=== PATIENT | female | born 1985 | race Caucasian/White ===

== ENCOUNTER → 2017-08-30 16:16 | Outpatient (CLI) | payer OTHER, SELFPAY ==
[2017-08-30 19:10] LABS: Group B Strep DNA By PCR POSITIVE (Negative); Probe Check PASS
== END ==
PROVIDERS: Visit Provider Obstetrics & Gynecology
DX: Z36.85 Encounter for antenatal screening for Streptococcus B (principal)
CPT/HCPCS: 87653

== ENCOUNTER 2017-09-05 01:00 | Inpatient (IN) | payer OTHER, SELFPAY ==
[2017-09-05] MEDS: Lactated Ringers 1,000 ML 50 ML IV ×4 (02:10→13:40)
[2017-09-05 02:13] LABS: ROM Internal Control Test YES-OK TO RESULT pt. (Internal QC)
[2017-09-05 02:14] LABS: ROM Patient Test POSITIVE (Negative)
[2017-09-05 02:48] VITALS: BMI 36.2
[2017-09-05 02:51] LABS: Hematocrit 35.8 % (37-47); Hemoglobin 11.6 g/dl (12.0-15.0); Mean Corp Hgb Conc 32.4 g/gl (32-36); Mean Corpuscular Hgb 31.2 pg (27.0-32.0); Mean Corpuscular Volume 96.2 fL (81-99); Mean Platelet Vol. 9.7 fl (6.2-12.0); Platelet Count 297 K/mm3 (150-450); RBC Distribution Width CV 14.7 % (11.6-14.6); Red Blood Count 3.72 M/mm3 (4.2-5.4); Scan Indicated on CBC? Y/N NO
[2017-09-05] MEDS: Oxytocin 30 units/NS 500 ml 30 UNITS/500 ML IV.SOLN IV (10:56)
--- NOTE | 2017-09-05 11:25 | PCM.PN.OB ---
Subjective: 36+ week intrauterine presented with premature rupture membranes last evening. Now about 12 hours from rupture of membranes. Cervix has progressed to about 4-5 cm and internal monitoring shows poor contraction pattern. Epidural is in place and patient is comfortable. Ultrasound confirms cephalic presentation. Will start Pitocin to improve contraction pattern. Has now had 3 doses of penicillin. Anticipate spontaneous vaginal delivery. - Physical Exam Weight: 211 lb 3.245 oz Body Mass Index (BMI) 36.2 Intake and Output for Last 24 Hours 09/03/17 09/04/17 09/05/17 23:59 23:59 23:59 Intake Total 1931 / 1931 Output Total 1750 / 1750 Balance 181 / 181 Laboratory Tests Past 24 Hrs 09/05/17 09/05/17 09/05/17 01:35 02:10 02:10 WBC 9.0 RBC 3.72 L Hgb 11.6 L Hct 35.8 L MCV 96.2 MCH 31.2 MCHC 32.4 RDW 14.7 H RDW Differential 51.0 H Plt Count 297 MPV 9.7 Vag Amniotic Fld Detect POSITIVE H Blood Type O POSITIVE Antibody Screen NEGATIVE
[2017-09-05] MEDS: Oxytocin 30 units/NS 500 ml 30 UNITS/500 ML IV.SOLN 334 UNITS IV (13:51)
--- NOTE | 2017-09-05 14:04 | PCM.OB.VAG ---
Vaginal Delivery Maternal Presentation: Active Labor, Spontaneous Rupture of Membranes Amniotic Membrane Rupture Type: Spontaneous at home Amniotic Fluid Description: Clear Final JAKE: 09/30/17 Final JAKE Source: US <20 weeks Gestational age: 36 Weeks and 3 Days doctor who attended delivery (if requested by OB): Sugey Giordano, 36+ weeks Date of Procedure: 09/05/17 Pre-Operative Diagnosis: PPROM, IUP Post-Operative Diagnosis: PPROM, IUP Surgery/ Procedure Performed: Spontaneous Vaginal Delivery Type of Anesthesia: Epidural Description of Procedure: Spontaneous vaginal delivery of a viable female infant with Apgars of 8/9 from an occiput anterior presentation with clear amniotic fluid and normal three-vessel placenta. No episiotomy or laceration. Sponge counts okay. Delivery physician: Darren Smith MD. Presentation: Vertex Placental Delivery Description: Spontaneous Placenta Disposition: [facility] Cord Vessel Description: 3 Vessels Cord Gases drawn per routine: ABG Cord Entanglement: None Estimated Blood Loss: 250 cc Infant A gender: Female (1 minute): 8 (5 minute): 9 Episiotomy Description: None Laceration: None Medications given after delivery: IV Pitocin Complications: None
--- NOTE | 2017-09-05 14:09 | OP.PCM_ITS ---
Vaginal Delivery Maternal Presentation: Active Labor, Spontaneous Rupture of Membranes Amniotic Membrane Rupture Type: Spontaneous at home Amniotic Fluid Description: Clear Final JAKE: 09/30/17 Final JAKE Source: US <20 weeks Gestational age: 36 Weeks and 3 Days doctor who attended delivery (if requested by OB): Sugey Giordano , 36+ weeks Date of Procedure: 09/05/17 Pre-Operative Diagnosis: PPROM, IUP Post-Operative Diagnosis: PPROM, IUP Surgery/ Procedure Performed: Spontaneous Vaginal Delivery Type of Anesthesia: Epidural Description of Procedure: Spontaneous vaginal delivery of a viable female infant with Apgars of 8/9 from an occiput anterior presentation with clear amniotic fluid and normal three- vessel placenta. No episiotomy or laceration. Sponge counts okay. Delivery physician: Darren Smith MD. Presentation: Vertex Placental Delivery Description: Spontaneous Placenta Disposition: [facility] Cord Vessel Description: 3 Vessels Cord Gases drawn per routine: ABG Cord Entanglement: None Estimated Blood Loss: 250 cc Infant A gender: Female (1 minute): 8 (5 minute): 9 Episiotomy Description: None Laceration: None Medications given after delivery: IV Pitocin Complications: None
--- NOTE | 2017-09-05 14:11 | DCINST_ITS ---
Discharge Diet: No Restrictions Discharge Activity: May Shower, May Take a Tub Bath May resume sexual activity in: 4-6 weeks Additional Activity Instructions:: Nothing in the vagina for 4-6 weeks. You may return to work/school in 6 weeks. Call your doctor if you observe: Fever of 101 or Higher, Inability to urinate, Inability to have a bowel movement, Using more than one pad per hour Additional Instructions: If you experience any of the following, contact your healthcare provider. * Unrelieved incision or abdominal pain * Swelling, redness, discharge or bleeding from your incision or episiotomy site * Your incision begins to separate * Problems urinating (including inability to urinate or burning while urinating) . * Visual changes * Severe headache * Flu-like symptoms * Pain or redness in one of both of your breasts * Pain, warmth, tenderness or swelling in your legs, especially the calf area * Frequent nausea and vomiting * Symptoms of depression or anxiety If you experience any of the following, call 911 or go to the nearest Emergency Room. * Chest pain * Problems breathing * Seizure activity * Partial or complete paralysis of a body part, slurred speech, weakness or drooping of the face, or a sudden inability to walk or hold your balance Allergies/Adverse Reactions: Allergies No Known Allergies Allergy (Verified 09/05/17 02:49) Medications to take at Discharge Singulair 50 mg PO DAILY 09/30/14 Zoloft 50 mg PO DAILY 09/30/14 Albuterol IH (ProAir) [Proair Hfa (SP)Vent Pts] 1 puff INHALATION Q4H PRN PRN Mometasone/Formoterol [Dulera 100 Mcg/5 Mcg Inhaler] 1 puff IH DAILY 09/05/17 Vits [Prenatabs FA] 1 tablet PO DAILY 09/05/17 Please Follow Up With: Josseline Guevara MD - [phone] When: Call to make an appointment with your doctor in 6 weeks. Primary Care Physician: Nikko Loya DO [Primary Care Provider] -
[2017-09-05] MEDS: Oxytocin 30 units/NS 500 ml 30 UNITS/500 ML IV.SOLN 167 UNITS IV (14:22)
[2017-09-05] MEDS: 0.9% Saline Lock 10 ML Syringe IV (15:35)
[2017-09-05 17:54] VITALS: BP 97/47; PULSE 78; RESP 16; TEMP 36.4
[2017-09-05 19:20] VITALS: BP 103/63; PULSE 78; RESP 18; TEMP 36.6; O2SAT 99
[2017-09-05] MEDS: Sertraline 50 MG Tablet PO (21:44)
[2017-09-05] MEDS: Montelukast 10 MG Tablet PO (21:44)
[2017-09-05] MEDS: Ibuprofen 600 MG Tablet PO (21:44)
[2017-09-05 23:48] VITALS: BP 111/63; PULSE 70; RESP 18; TEMP 36.8; O2SAT 98
[2017-09-06 03:19] VITALS: BP 111/56; PULSE 72; RESP 16; TEMP 36.6
[2017-09-06] MEDS: Ibuprofen 600 MG Tablet PO ×2 (07:24→17:29)
[2017-09-06 08:18] VITALS: BP 107/64; PULSE 70; RESP 17; TEMP 36.7
[2017-09-06 12:30] VITALS: BP 105/70; PULSE 80; RESP 16; TEMP 36.6; O2SAT 98
--- NOTE | 2017-09-06 13:03 | PCM.PN.OB ---
Subjective: Patient without complaints. Breast-feeding going well. Son has influenza B which started last Wednesday. Patient without symptoms except upon presentation on Wednesday she had a fever of 100.0 at home. No fevers here or other symptoms. - Physical Exam Vital Signs AF, VSS Temp Pulse Resp BP Pulse Ox 98.0 F 70 17 107/64 98 09/06/17 08:18 09/06/17 08:18 09/06/17 08:18 09/06/17 08:18 09/05/17 23:48 Oxygen Delivery Method Room Air Weight: 211 lb 3.245 oz Body Mass Index (BMI) 36.2 Intake and Output for Last 24 Hours 09/04/17 09/05/17 09/06/17 23:59 23:59 23:59 Intake Total 3393 / 3393 Output Total 3900 / 3900 Balance -507 / -507 Fundus firm, minimal lochia. Assessment/Plan Doing well. Continuing present care. Will start prophylactic Tamiflu.
[2017-09-06] MEDS: Oseltamivir Phosphate 75 MG Capsule PO (14:00)
[2017-09-06 15:40] VITALS: BP 121/60; PULSE 78; RESP 16; TEMP 36.6; O2SAT 98
--- NOTE | 2017-09-06 16:26 | CASEMGMT ---
Social Work Referral Date: 09/06/17 Date of Assessment: 09/06/17 Reason for Consult: History of depression (PPD) Informant: Mother of baby (MOB) and chart Personal Status Mentation: (A&Ox3?): MOB oriented x3 Present during assessment: MOB and infant Hx : 2 Hx Para: 1 Infant Gender: Female Infant Name: Maureen Watts (1min): 8 (5min): 9 Care: Adequate care Alleged father: Manuel Watts Alleged father involved: Yes Length of Relationship with alleged father of baby: MOB and father of baby (FOB) have been in a relationship for 13 years and were in 2008. Number of Children in the home: Maureen is second infant for both MOB and FOB. Maureen is now younger sister to 4 year old Perfecto Watts. Custody Comments: MOB and FOB have full custody of Perfecto and now this . Living Arrangements: MOB, FOB, [place] and now this infant live in a private home. Education: MOB with a collage education in nursing. Employment: [employer], MOB has 12 weeks of leave. Family Dynamics/Relationships: MOB reporting to have a positive relationship with FOB and to mention FOB has a main support system. Supports: MOB identifying to have a positive support system from both maternal and paternal grandparents along with FOB and multiple friends. Substance Abuse Hx and Current Pattern of Use Comment: MOB denies any history of Alcohol abuse, tobacco use, Marijuana, Heroin, Cocaine, Methamphetamine, and Prescriptions Drugs. Mental Health Hx and Current Status Comment: MOB reporting to have a history of depression from going through nursing school. MOB also reporting to have a history of PPD with first . MOB reporting to currently be managing PPD and depression through medication: Zoloft. MOB reporting that MOB has tried multiple depression medications throughout the years and has found that Zoloft has been helpful and beneficial. This social work job titles broaching topic of counseling for MOB. MOB reporting to have no history of counseling and to not currently be opening to adding another thing. MOB denies any suicidal ideation or thoughts. MOB communicating that Perfecto (REJI's first child) was just diagnosed with the flu and MOB is concerned about returning home with . This social work job titles exploring options with MOB as MOB expressing that Perfecto could go to be with grandparents for the next few days while transitions home and [place] becomes healthy again. MOB tearful during above conversation and reporting to be unsure about what the right things is to do as MOB would like to be with both children. MOB presenting and reporting to be overwhelmed with current situation. MOB open to this social work job titles giving MOB information about counseling services. This social work job titles encouraged MOB to look into counseling options and to keep seeking out support systems when MOB is feeling down or overwhelmed. MOB reporting to be open to speaking with spouse and other support systems about mood. MOB also reporting to keep primary care doctor informed about MOB's current mood. Supportive counseling given. Items/Skills List for Infants Care Supplies: MOB reporting to have all needed supplies: crib, infant clothing, bottles, formula, breast pump, care seat. Bonding With : MOB reporting to feel a connection with . Observed Maternal/Paternal Child interaction: MOB holding infant during conversation. MOB finger tipping infant often as well as gazing towards infant. Emotional Assessment: MOB tearful during this social workers questions about depression/PPD/Perfecto with the flu. MOB able to collect self and be engaged in conversation with this social work job titles as evidenced by frequent eye contact and initiating conversation. Control: MOB unsure at this time. Resources JFS: No WIC: No People to People: No Community Action: No Help Me Grow: No Children Protective Services Hx: No Transportation: MOB reporting no concerns. Comments: Resources given to MOB for PPD, [facility], Help Me Grow, Counseling agencies, safe sleeping, and how to sooth an infant. Intervention: None at this time. Plan: to discharge home with MOB, FOB and Perfecto. Delphine CALIX, EMULSION OPERATOR
[2017-09-06 20:57] VITALS: BP 115/70; PULSE 72; RESP 18; TEMP 36.9
[2017-09-06] MEDS: Sertraline 50 MG Tablet PO (21:56)
[2017-09-06] MEDS: Montelukast 10 MG Tablet PO (21:56)
[2017-09-07] MEDS: Ibuprofen 600 MG Tablet PO ×2 (01:23→08:02)
[2017-09-07 01:40] VITALS: BP 113/53; PULSE 59; RESP 16; TEMP 36.4
--- NOTE | 2017-09-07 08:03 | PCM.PN.OB ---
Subjective: cluster fed overnight, but continues working on latch. Denies significant pain or heavy lochia. Ángela feels well. Objective: AVSS - Physical Exam General: Alert, Oriented x3, Cooperative, No apparent distress HEENT: Atraumatic, Normocephalic Lungs: Normal air movement Cardiovascular: Regular rate, Regular Rhythm, Normal S1, Normal S2 Abdomen: Soft, Non Tender, Non-Distended, - - Fundus firm and nontender Extremities: No edema, No Calf Tenderness Neurological: Neuro grossly intact Psych/Mental Status: Normal Affect, Appropriate, Alert and oriented to time, place, person, mood and affect Vital Signs Temp Pulse Resp BP Pulse Ox 97.5 F L 59 L 16 113/53 L 98 09/07/17 01:40 09/07/17 01:40 09/07/17 01:40 09/07/17 01:40 09/06/17 15:40 Oxygen Delivery Method Room Air Weight: 95.8 kg Body Mass Index (BMI) 36.2 Intake and Output for Last 24 Hours 09/05/17 09/06/17 09/07/17 23:59 23:59 23:59 Intake Total 3393 / 3393 Output Total 3900 / 3900 Balance -507 / -507 Assessment/Plan 32yo PPD#2 s/p doing well. -O pos, Rub imm -Routine care - -D/c home today
[2017-09-07 08:06] VITALS: BP 107/66; PULSE 63; RESP 16; TEMP 36.4; O2SAT 96
[2017-09-07] MEDS: Acetaminophen 500 MG Tablet 1000 MG PO (11:16)
[2017-09-07 14:00] VITALS: BP 100/55; PULSE 65; RESP 16; TEMP 36.4; O2SAT 98
== END 2017-09-07 14:35 | disposition home or self-care (01) | DRG 774 ==
PROVIDERS: Admitting Provider Obstetrics & Gynecology; Family Provider Family Medicine; PCP Family Medicine; Visit Provider Obstetrics & Gynecology
DX: O42.013 Preterm premature rupture of membranes, onset of labor within 24 hours of rupture, third trimester (principal); O99.42 Diseases of the circulatory system complicating childbirth; Z3A.36 36 weeks gestation of pregnancy; Z37.0 Single live birth; O75.89 Other specified complications of labor and delivery; J45.909 Unspecified asthma, uncomplicated; Z79.51 Long term (current) use of inhaled steroids
CPT/HCPCS: 59050; 76815; 84112; 85027; 86850; 86900; 99218; J7120; A4216; G0378

== ENCOUNTER → 2018-04-26 15:44 | Outpatient (CLI) | payer OTHER, SELFPAY ==
[2018-04-28 20:07] LABS: Endomysial Antibody IgA Negative (Negative)
[2018-04-29 10:13] LABS: Immunoglobulin A 202 mg/dL (87-352); t-Transglutaminase IgA 5 U/mL (0-3)
== END ==
PROVIDERS: Family Provider Family Medicine; PCP Family Medicine; Referring Provider Internal Medicine Gastroenterology; Visit Provider Internal Medicine Gastroenterology
DX: R19.7 Diarrhea, unspecified (principal)
CPT/HCPCS: 36415; 82784; 83516; 86140; 86255

== ENCOUNTER → 2018-05-03 15:09 | Outpatient (CLI) | payer OTHER, SELFPAY ==
--- NOTE | 2018-05-03 | COLBX_PTH ---
PATIENT: NNAMDI BARAHONA [facility] U#:[id number] AGE/SX: 40/F ROOM: RE05/03/[address]: Dr. Tyrone Watson MD : 1985 BED: DIS: SPEC #: [id number] RECD: 05/04/18 13:09 STATUS: DERRICK RAJESH #: [id number] BRENDA: 05/03/18 00:[address]: Tyrone Watson DEPT: SURGICAL PATHOLOGY RECD BY: Tim Brown ENTERED: 05/04/18 13:20 SP TYPE: COLON BX JEN DR: Dr. Nikko Loya, [facility] Tissues: A - Ileum, NOS B - COLON BIOPSY Procedures: Surgery Specimen Level IV HEADER OPERATION: Colonoscopy with biopsy PRE-OP DIAGNOSIS: Abdomen pain, diarrhea TISSUE SUBMITTED: A - Biopsy terminal ileum, rule out Crohn's/celiac, B - Biopsy, right and left colon, rule out microscopic colitis MICROSCOPIC DIAGNOSIS A. Terminal ileum, biopsy: Fragments of small intestinal mucosa, no pathologic diagnosis. B. Right and left colon, biopsy: Fragments of colonic mucosa, no pathologic diagnosis. FILIBERTO:cesar 05/05/18 MICROSCOPIC DESCRIPTION Slides are reviewed. GROSS DESCRIPTION A - Received in fixative is one container labeled with the patient's name and designated biopsy terminal ileum. The specimen consists of multiple irregular fragments of light anders soft tissue that in aggregate measure 0.8 x 0.8 x 0.1 cm. The specimen is totally submitted in one cassette. B - Received in fixative is one container labeled with the patient's name and designated biopsy right and left colon. The specimen consists of multiple irregular fragments of light anders soft tissue that in aggregate measure 1.5 x 0.8 x 0.1 cm. The specimen is totally submitted in one cassette. / FILIBERTO:cesar 05/04/18 TC:4 CPT: 34481 x2
== END ==
PROVIDERS: Family Provider Family Medicine; PCP Family Medicine; Referring Provider Internal Medicine Gastroenterology; Visit Provider Internal Medicine Gastroenterology
DX: R10.9 Unspecified abdominal pain (principal); R19.7 Diarrhea, unspecified
CPT/HCPCS: 88305

== ENCOUNTER → 2018-05-18 08:19 | Outpatient (CLI) | payer OTHER, SELFPAY | PROVIDERS: Family Provider Family Medicine; PCP Family Medicine; Referring Provider Internal Medicine Gastroenterology; Visit Provider Internal Medicine Gastroenterology | DX: R19.7 Diarrhea, unspecified (principal); K90.0 Celiac disease | CPT/HCPCS: 36415 ==

== ENCOUNTER → 2018-10-05 08:00 | Outpatient (CLI) | payer OTHER, SELFPAY ==
--- NOTE | 2018-10-05 08:02 | ECHOD_ITS ---
Reason For Study: Palpitations Procedure This was a 2D Doppler, Color Flow transthoracic echocardiogram. Exam performed in department. Left Ventricle Normal size and thickness. The estimated ejection fraction is 65 %. Normal diastology for age. No regional wall motion abnormalities noted. Right Ventricle Normal size and thickness. Normal systolic function. Atria Normal left atrium. Normal right atrium. Normal atrial septum. Mitral Valve The mitral valve is structurally normal. No prolapse or stenosis seen. Trivial mitral valve insufficiency. Tricuspid Valve Normal tricuspid valve. Trivial tricuspid valve insufficiency. Right ventricular systolic pressure estimated to be 17 mmHg. Aortic Valve Normal aortic valve. Trisinus/trileaflet aortic valve. Pulmonic Valve Normal pulmonic valve. Trivial pulmonic valve insufficiency. Great Vessels Normal aortic root. Normal arch. Normal inferior vena cava. Inferior vena cava collapse with sniff. Pericardium/Pleural No pericardial effusion. MMode/2D Measurements & Calculations LVIDd: 4.5 cm IVSd: 0.93 cm Ao root diam: 2.6 cm LVIDs: 3.0 cm LVPWd: 0.93 cm RVDd: 3.3 cm FS: 33.6 % LAV(MOD-bp): 35.3 ml LVAd ap4: 30.7 cm2 SV(MOD-sp4): 53.8 ml LAV(MOD-bp) Indexed: 18.3 ml/m2 EDV(MOD-sp4): 93.0 ml LAV(MOD-sp2): 32.9 ml EDV(sp4-el): 95.7 ml LAV(MOD-sp4): 33.4 ml LVAs ap4: 17.7 cm2 ESV(MOD-sp4): 39.2 ml ESV(sp4-el): 38.4 ml EF(MOD-sp4): 57.9 % EF(sp4-el): 59.8 % SV(sp4-el): 57.3 ml LA A4 area: 14.7 cm2 LA dimension(2D): 3.2 cm RA A4 area: 10.5 cm2 Doppler Measurements & Calculations MV E max mayo: 81.5 cm/sec Lat Peak E' Mayo: 14.8 cm/sec Med Peak E' Mayo: 11.0 cm/sec MV A max mayo: 60.0 cm/sec E/E' lat: 5.5 E/E' med: 7.4 MV E/A: 1.4 Ao V2 max: 128.8 cm/sec LV V1 max: 114.0 cm/sec PA V2 max: 97.3 cm/sec Ao max P.6 mmHg LV V1 max P.2 mmHg Ao V2 mean: 97.1 cm/sec Ao mean P.1 mmHg Ao V2 VTI: 29.3 cm TR max mayo: 170.5 cm/sec TR max P.6 mmHg Interpretation Summary The estimated ejection fraction is 65 %. Normal diastology for age. Trivial mitral valve insufficiency. Trivial tricuspid valve insufficiency. Right ventricular systolic pressure estimated to be 17 mmHg. There is no comparison study available. Ordering Physician: Nikko Loya Referring Physician: Nikko Loya Performed By: Kinjal Hardy, EVANS, RVT
== END ==
PROVIDERS: Family Provider Family Medicine; PCP Family Medicine; Referring Provider Family Medicine; Visit Provider Family Medicine
DX: I34.0 Nonrheumatic mitral (valve) insufficiency (principal); R00.2 Palpitations
CPT/HCPCS: 93306

== ENCOUNTER 2019-05-15 13:30 | Outpatient (RCR) | payer OTHER, SELFPAY ==
--- NOTE | 2018-10-31 19:19 | MASS.EVAL_ITS ---
Massage Therapy Evaluation: Initial Evaluation Date: 11/05/2018 SUBJECTIVE: Ángela is a 33 year old female who was referred to the [facility] facility for a massotherapy evaluation by Dr Loya with the diagnosis of muscle pain. Ángela presents today with the symptoms of tension and pain in her neck and shoulders. She states that she gets headaches from the neck and shoulder pain. OBJECTIVE: Upon observation and palpation I found Ángela to have high muscle tension with tenderness and myofascial restrictions in her sub occipitals, levator scapulae, trapezius, rhomboids, scalenes, and thoracic paraspinals. Her QL?s and lumbar paraspinals all were very tight with fascial restrictions, tender points and trigger points. The first treatment consisted of a one hour massage to her upper body with myofascial release, muscle stripping, trigger point compression techniques, and cervical manual traction. ASSESSMENT: I feel that is a good candidate for massotherapy at this time. She had a favorable response to the first treatment with reduction in her muscle aches, pain and tension. She also had improvement in her cervical flexibility and low back flexibility. PLAN: The plan of care was reviewed with the patient. The patient is to be seen on an as needed basis for a total of ten sessions with the recommendation of once every month for a one hour treatment.
--- NOTE | 2019-07-14 15:13 | DS.PCM_ITS ---
Massage Therapy Discharge Summary: Discharge Date: 07/14/2019 Ángela was seen for a massotherapy evaluation on 10/26/2018 with the diagnosis of neck pain. She was treated with five sessions of massage therapy consisting of moderate to deep pressure soft tissue techniques, myofascial release and trigger point compression to her cervical, thoracic, lower back, and hips. Ángela responded well to the therapy by reporting decreased tension and pain throughout her head, neck, shoulders, lower back and hips. Her goals for therapy were met throughout the treatment sessions. At this time this patient is being discharged from our care at [facility] facility.
== END 2019-05-15 19:00 | disposition home or self-care (01) ==
LOC: MASS 13:30
PROVIDERS: Family Provider Family Medicine; PCP Family Medicine; Referring Provider Family Medicine; Visit Provider Family Medicine
DX: M54.2 Cervicalgia (principal); M54.6 Pain in thoracic spine; M54.5 Low back pain
CPT/HCPCS: 97124

== ENCOUNTER → 2019-09-05 | Outpatient (CLI) | payer OTHER, SELFPAY ==
[2019-09-05 12:15] LABS: hCG Titer Quant., Serum 3185 mIU/mL (1-3)
== END | disposition home or self-care (01) ==
LOC: LAB 10:48
PROVIDERS: PCP Family Medicine; Referring Provider Obstetrics & Gynecology; Visit Provider Obstetrics & Gynecology
DX: O20.9 Hemorrhage in early pregnancy, unspecified (principal); Z3A.00 Weeks of gestation of pregnancy not specified
CPT/HCPCS: 36415; 84702; 86900; 86901

== ENCOUNTER → 2019-09-07 | Outpatient (CLI) | payer OTHER, SELFPAY ==
[2019-09-07 09:00] LABS: hCG Titer Quant., Serum 4265 mIU/mL (1-3)
== END | disposition home or self-care (01) ==
LOC: LAB.FUTURE 07:49 → LAB 07:53
PROVIDERS: PCP Family Medicine; Referring Provider Obstetrics & Gynecology; Visit Provider Obstetrics & Gynecology
DX: O20.9 Hemorrhage in early pregnancy, unspecified (principal); Z3A.00 Weeks of gestation of pregnancy not specified
CPT/HCPCS: 36415; 84702

== ENCOUNTER → 2019-09-11 | Outpatient (CLI) | payer OTHER, SELFPAY ==
[2019-09-11 11:04] LABS: Progesterone Level 10.37 ng/mL (See Comment)
[2019-09-11 11:16] LABS: hCG Titer Quant., Serum 7296 mIU/mL (1-3)
== END | disposition home or self-care (01) ==
LOC: LAB.FUTURE 09:51
PROVIDERS: PCP Family Medicine; Referring Provider Obstetrics & Gynecology; Visit Provider Obstetrics & Gynecology
DX: O20.0 Threatened abortion (principal)
CPT/HCPCS: 36415; 84144; 84702

== ENCOUNTER → 2019-09-22 | Outpatient (CLI) | payer OTHER, SELFPAY ==
[2019-09-22 10:18] LABS: hCG Titer Quant., Serum 6590 mIU/mL (1-3)
== END | disposition home or self-care (01) ==
LOC: LAB 09:29
PROVIDERS: PCP Family Medicine; Referring Provider Obstetrics & Gynecology; Visit Provider Obstetrics & Gynecology
DX: O20.0 Threatened abortion (principal)
CPT/HCPCS: 36415; 84702

== ENCOUNTER → 2019-10-02 | Outpatient (CLI) | payer OTHER, SELFPAY ==
[2019-10-02 11:13] LABS: hCG Titer Quant., Serum 3057 mIU/mL (1-3)
== END | disposition home or self-care (01) ==
LOC: LAB 09:01
PROVIDERS: PCP Family Medicine; Referring Provider Obstetrics & Gynecology; Visit Provider Obstetrics & Gynecology
DX: O02.1 Missed abortion (principal)
CPT/HCPCS: 36415; 84702

== ENCOUNTER 2019-10-20 08:31 | Outpatient (RCR) | payer OTHER, SELFPAY ==
[2019-10-11 07:36] LABS: hCG Titer Quant., Serum 1433 mIU/mL (1-3)
[2019-10-16 07:50] LABS: hCG Titer Quant., Serum 847 mIU/mL (1-3)
[2019-10-20 09:50] LABS: hCG Titer Quant., Serum 502 mIU/mL (1-3)
== END 2019-10-20 18:00 | disposition home or self-care (01) ==
LOC: LAB 08:31
PROVIDERS: PCP Family Medicine; Visit Provider Obstetrics & Gynecology
DX: O03.9 Complete or unspecified spontaneous abortion without complication (principal)
CPT/HCPCS: 36415; 84702

== ENCOUNTER → 2019-10-28 | Outpatient (CLI) | payer OTHER, SELFPAY ==
[2019-10-28 08:20] LABS: hCG Titer Quant., Serum 162 mIU/mL (1-3)
== END | disposition home or self-care (01) ==
LOC: LAB 06:41
PROVIDERS: PCP Family Medicine; Referring Provider Obstetrics & Gynecology; Visit Provider Obstetrics & Gynecology
DX: O03.9 Complete or unspecified spontaneous abortion without complication (principal)
CPT/HCPCS: 84702

== ENCOUNTER 2019-11-02 16:18 | Outpatient (RCR) | payer OTHER, SELFPAY ==
[2019-11-02 17:47] LABS: hCG Titer Quant., Serum 63 mIU/mL (1-3)
[2019-11-09 08:27] LABS: hCG Titer Quant., Serum 20 mIU/mL (1-3)
== END 2019-11-23 18:00 | disposition home or self-care (01) ==
LOC: LAB 16:18
PROVIDERS: PCP Family Medicine; Visit Provider Obstetrics & Gynecology
DX: N96 Recurrent pregnancy loss (principal)
CPT/HCPCS: 36415; 84702

== ENCOUNTER 2020-05-24 16:02 | Outpatient (RCR) | payer OTHER, SELFPAY ==
[2020-05-22 16:03] LABS: hCG Titer Quant., Serum 278 mIU/mL (1-3)
[2020-05-24 18:21] LABS: hCG Titer Quant., Serum 577 mIU/mL (1-3)
== END 2020-05-24 18:00 | disposition home or self-care (01) ==
LOC: LAB 16:02
PROVIDERS: PCP Family Medicine; Referring Provider Obstetrics & Gynecology; Visit Provider Obstetrics & Gynecology
DX: Z32.01 Encounter for pregnancy test, result positive (principal)
CPT/HCPCS: 36415; 84702

== ENCOUNTER 2020-07-03 10:45 | Outpatient (RCR) | payer OTHER, SELFPAY ==
--- NOTE | 2019-08-02 15:12 | MASS.EVAL_ITS ---
Massage Therapy Evaluation: Initial Evaluation Date: 08/02/2019 SUBJECTIVE: Ángela is a 34 year old female who was referred to the [facility] facility for a massotherapy evaluation by Dr. Loya with the diagnosis of headaches and neck pain. Ángela presents today with the symptoms of pain, stiffness and tension in her neck, mid back and having headaches. Ángela reports having a past medical history of pain and tension in her neck and shoulders related to her posture at work. She reports having minimal improvement with exercise and stretching. OBJECTIVE: Upon observation Ángela has some posture issues with her head and shoulders forward from the neutral position in sitting and standing. After examination and palpation I found Ángela to have high muscle tension with tenderness and myofascial restrictions in her sub occipitals, levator scapulae, trapezius, rhomboids, scalenes, and thoracic paraspinals. The first treatment consisted of a one hour massage to her upper body with myofascial release, muscle stripping, trigger point compression techniques, and cervical manual traction. ASSESSMENT: I feel that Ángela is a good candidate for massotherapy at this time. She had a favorable response to the first treatment with reduction in her muscle aches, pain and tension. She also had improvement in her cervical flexibility and low back flexibility. PLAN: The plan of care was reviewed with the patient. The patient is to be seen on an as needed basis for a total of ten sessions with the recommendation of once every month for a one hour treatment.
--- NOTE | 2020-07-13 10:01 | MASS.DISCH ---
Massage Therapy Discharge Summary: Discharge Date: 07/13/2020 Ángela was seen for a massotherapy evaluation on 08/02/2019 with the diagnosis of neck and back pain. She was treated with six sessions of massage therapy consisting of deep pressure soft tissue techniques, myofascial release and trigger point compression to her cervical, thoracic, lower back and hips. Ángela responded well to the therapy by reporting decreased tension and pain throughout her neck, shoulders, and back pain. Her goals for therapy were met throughout the treatment sessions. At this time this patient is being discharged from our care at [facility] facility.
== END 2020-07-03 19:00 | disposition home or self-care (01) ==
LOC: MASS 10:45
PROVIDERS: Family Provider Family Medicine; PCP Family Medicine; Referring Provider Family Medicine; Visit Provider Family Medicine
DX: M54.2 Cervicalgia (principal); M54.9 Dorsalgia, unspecified
CPT/HCPCS: 97124

== ENCOUNTER 2020-07-04 05:59 | Day surgery (SDC) | payer OTHER, SELFPAY ==
--- NOTE | 2020-07-02 13:19 | PCM.HP.BLA ---
History and Physical Date of Admission: 07/04/20 Office Visit 07/02/2020 OB/Gynecology Sarah English FORMING [employer] SELECTOR Missed +1 more Dx Referred by Self Reason for Visit Progress Notes Expand AllCollapse All Pre-Op History and Physical ? HPI: The patient is a 35 year old female presenting for pre-operative visit. She is scheduled for Suction D&C, for Missed ab- 9.6 weeks, twin gestation (mono/di) on 07/04/20. Procedure discussed along with risks, benefits and complications. Other alternatives discussed for management. Consent form signed? Yes. ? ? PAST MEDICAL HISTORYExpand by Default PAST MEDICAL HISTORY Diagnosis Date ? Asthma ? ? Depression ? ? depression ? ? Unspecified asthma(493.90) ? ? ? PAST SURGICAL HISTORYExpand by Default PAST SURGICAL HISTORY Procedure Laterality Date ? PAST SURGICAL HISTORY OF ? ? ? ACL repair ? REMOVAL OF TONSILS,<12 Y/O ? ? ? Tonsillectomy ? ? ? CURRENT MEDICATIONSExpand by Default Current Outpatient Medications Medication Sig Dispense Refill ? [id number] 250 mg-400 unit -40 mg-5 mg tab Take by mouth. ? ? ? sertraline (ZOLOFT) 50 mg tablet Take 1 tablet by mouth once daily. 30 tablet 5 ? vit 93/iron fum/folic ( FORMULA ORAL) Take by mouth. ? ? ? montelukast (SINGULAIR) 10 mg tablet Take 10 mg by mouth daily at bedtime. ? ? ? fluticasone-vilanterol (BREO ELLIPTA) 200-25 mcg/dose inhaler Inhale 1 Inhalation as instructed once daily. ? ? ? No current facility-administered medications for this visit. ? ? ALLERGIES: Benzalkonium Chloride ? PERSONAL HISTORY: SOCIAL HISTORYExpand by Default Social History ? Tobacco Use ? Smoking status: Never Smoker ? Smokeless tobacco: Never Used Substance Use Topics ? Alcohol use: Not Currently ? ? Comment: occasional ? Drug use: No ? FAMILY HISTORY: FAMILY HISTORYExpand by Default FAMILY HISTORY Problem Relation Age of Onset ? Depression Mother ? ? Hyperlipidemia Mother ? ? Allergies Father ? ? Asthma Father ? ? Anxiety disorder Brother ? ? Depression Brother ? ? Heart Brother ? ? congential heart valve issue ? Colon Cancer Maternal Grandmother ? ? Breast Cancer Paternal Grandmother ? ? Heart Paternal Grandmother ? ? Cancer Paternal Grandfather ? ? LEUKEMIA ? Aneurysm Sister ? ? brain aneurysm ? ? Alcohol/Drug Maternal Grandfather ? ? Stroke Maternal Grandfather ? ? No Known Problems Daughter ? ? No Known Problems Son ? ? ? REVIEW OF SYMPTOMS: negative except as noted above PHYSICAL EXAMINATION: ? VITALS: Last menstrual period 04/12/2020, unknown if currently . ? GENERAL: The patient is well nourished, well hydrated in no acute distress. , The patient is oriented to time, place, and person. NECK: full range of motion ? IMPRESSION: Missed ab- MONO/DI twins 9.6 weeks ? PLAN: Suction D&C reviewed with patient. ? Pt has been counseled on risks/benefits and alternatives of surgery including but not limited to anesthesia, bleeding, infection, perforation of uterus with subsequent injury to pelvic structures including bowel, bladder, ureters and vessels. Pt wishes to proceed with surgery at this time. ? Doxycycline pre op ordered and one dose post op Motrin Post op ordered I have reviewed and updated past medical and surgical history, medications and allergies Blood T&S, cbc ordered pre op ? Sarah English MD Procedure Criteria Procedure Type: Elective COVID Risk Discussion: The surgeon/proceduralist and patient have discussed in detail the risk of exposure to and/or potential harm posed by the COVID-19 virus with having a surgery/procedure at this time versus the risk of delaying the surgery/procedure. It is not possible to know either the risk of delaying the surgery or procedure or chance of getting an infection with perfect accuracy, but a joint decision was made between the patient and the surgeon/proceduralist to proceed at this time with the scheduled surgery/procedure as indicated on the consent form.
[2020-07-03 12:45] LABS: Hematocrit 38.6 % (37-47); Hemoglobin 12.6 g/dL (12.0-15.0); Mean Corp Hgb Conc 32.6 g/dL (32-36); Mean Corpuscular Hgb 31.3 pg (27.0-32.0); Mean Corpuscular Volume 95.8 fL (81-99); Mean Platelet Vol. 9.5 fl (6.2-12.0); Platelet Count 324 K/mm3 (150-450); RBC Distribution Width CV 12.2 % (11.6-14.6); RBC Distribution Width SD 42.6 fl (35.1-43.9); Red Blood Count 4.03 M/mm3 (4.2-5.4)
[2020-07-04] VITALS (8 sets, daily range): BP systolic 93–111; BP diastolic 48–67; PULSE 60–71; RESP 14–16; TEMP 36.3–36.6; O2SAT 96–100; BMI 34.9
[2020-07-04] MEDS: Doxycycline 100 MG CAPSULE 200 MG PO (06:30)
[2020-07-04] MEDS: Lactated Ringers 1,000 ML 100 ML IV (06:52)
--- NOTE | 2020-07-04 07:30 | POC_PTH ---
PATIENT: NNAMDI BARAHONA LOC: [facility] [place] U#:[id number] AGE/SX: 35/F ROOM: RE07/04/[address]: Dr. Patricia Jorge MD : 1985 BED: DIS: 07/04/2020 SPEC #: [id number] RECD: 07/04/20 09:32 STATUS: DERRICK RAJESH #: [id number] BRENDA: 07/04/20 07:[address]: Patricia Jorge DEPT: SURGICAL PATHOLOGY RECD BY: [place] ENTERED: 07/04/20 10:56 SP TYPE: PROD CONC OTHR DR: Dr. Nikko Loya, DO Tissues: Product of conception, NOS Procedures: Surgery Specimen Level IV HEADER OPERATION: Suction dilation and curettage PRE-OP DIAGNOSIS: Missed AB mono/di twins 9.6 weeks TISSUE SUBMITTED: Products of conception MICROSCOPIC DIAGNOSIS Endometrium, curettage: Chorionic villi, decidualized tissue and trophoblastic cells consistent with products of conception. AM:cesar 07/05/20 MICROSCOPIC DESCRIPTION Slides are reviewed. GROSS DESCRIPTION Received in fixative is one container labeled with the patient's name and designated products of conception. The specimen consists of multiple irregular fragments of pink soft tissue that in aggregate measure 6 x 6 x 2 cm. tissue is not identified. Proposal Specialist tissue is submitted in two cassettes. / SJ:cesar 07/04/20 TC: 5 CPT: 97705
--- NOTE | 2020-07-04 07:40 | DCINST_ITS ---
Discharge Diet: No Restrictions Discharge Activity: Return to Normal Activity, May Shower, May Take a Tub Bath - in 2 weeks. Return to work on:: 07/08/20 May shower in (days): 1 May resume sexual activity in: 2 weeks Call your doctor if your incision/area has: Sudden Increased Bleeding, Foul Smelling Discharge Call your doctor if you observe: Fever of 101 or Higher, Using more than one pad per hour Allergies/Adverse Reactions: Allergies benzalkonium chloride Allergy (Verified 07/04/20 06:29) Swelling Medications to take at Discharge Singulair 50 mg PO DAILY 09/30/14 Zoloft 50 mg PO DAILY 09/30/14 Albuterol IH (ProAir) [Proair Hfa] 1 puff INHALATION Q4H PRN PRN 09/05/17 Fluticasone/Vilanterol [Breo Ellipta 200-25 Mcg INH] 1 each IH QHS 09/05/17 Vits [Prenatabs FA ] 1 tablet PO DAILY 09/05/17 Primary Care Physician: Nikko Loya DO [Primary Care Provider] - Test Results: Test results from this visit will be discussed in further detail at your follow- up appointment, if applicable. Please Follow Up With: Patricia Jorge MD - [phone] When: in our office in 2-4 weeks or as needed or virtual visit
[2020-07-04] MEDS: Lidocaine 1%/Epi 1:200 (30ml) 30 ML AMPUL (07:48)
--- NOTE | 2020-07-04 08:06 | OP.PCM_ITS ---
Report of Operation Date of Procedure: 07/04/20 Pre-Operative Diagnosis: 9 week missed , monochorionic dichorionic twins Post-Operative Diagnosis: same Surgery/Procedure Performed:: suction dilation and curettage Description of Surgical Findings:: normal cervix and vagina oil drilling engineer: None Type of Anesthesia:: MAC/Supplemental/Local Anesthesiologist: Lulu Rubio Special Medications: none Specimen's removed: products of conception Drains: none Estimated Blood Loss (mL): 20 Fluids Replaced: 1000 cc Description of Procedure: The patient was taken to the operating room where she was prepped and draped in a dorsolithotomy position. A bimanual examination was done and confirmed the uterus to be 10 weeks size and anteverted. A weighted speculum was placed in the vagina and the anterior lip of the cervix was grasped with a single-tooth tenaculum. The cervix was dilated serially. A 10 mm suction curette was placed to the uterine fundus and the suction was created. Several passes were made to remove clots and products of conception. When minimal tissue was returning a gentle sharp curettage was then done of the uterine cavity. The uterine cry was appreciated and another gentle pass was made with the suction curette. At this point there is no active bleeding from the uterus and minimal blood and no further products of conception were removed. The instruments removed from the cervix and the cervix was observed and no active bleeding was identified. The tenaculum was removed off the cervix and hemostasis of the tenaculum site was assured. Made of the instruments removed from the vagina and the vaginal sweep was completed by me. Sponge and needle counts were correct. The patient was taken to the recovery room in stable condition. Findings: 10 week size uterus, normal cervix and vagina. Specimen: Products of conception Start time:747 STop time: 803 Grafts/Implants Used: none - Complications none - Admit VTE Documentation VTE Present on Admission: No VTE Mechan Device Prophylaxis: SCD's VTE Pharm Prophylaxis ordered?: No
== END 2020-07-04 10:22 | disposition home or self-care (01) ==
LOC: SDC 06:01 → AC 06:02
PROVIDERS: PCP Family Medicine; Referring Provider Obstetrics & Gynecology; Visit Provider Obstetrics & Gynecology
PROC: (CPT 59820; principal; 2020-07-04 07:15)
DX: O02.1 Missed abortion (principal); Z20.828 Contact with and (suspected) exposure to other viral communicable diseases; J45.909 Unspecified asthma, uncomplicated; Z79.51 Long term (current) use of inhaled steroids
CPT/HCPCS: 59820; 36415; 85027; 86850; 86900; 86901; 87426; 88305; C9803; J7120; J2405

== ENCOUNTER → 2021-04-18 14:26 | Outpatient (CLI) | payer OTHER, SELFPAY | PROVIDERS: PCP Family Medicine; Visit Provider Family Medicine | DX: R69 Illness, unspecified (principal) ==

== ENCOUNTER 2021-06-17 11:15 | Outpatient (RCR) | payer OTHER, SELFPAY ==
[2020-07-04 06:35] VITALS: BMI 34.9
--- NOTE | 2020-08-15 13:12 | MASS.EVAL ---
Massage Therapy Evaluation: Initial Evaluation Date: 08/15/2020 /Age: 08 1985, 35 Diagnosis: Neck and Back Pain Goals: Decrease muscle pain and tension Promote relaxation Assessment: Ángela is a good candidate for massage at this time. She responded well to her first treatment. Plan: To be seen one time per month or PRN for a total of 10 one hour sessions.
== END 2021-06-17 19:00 | disposition home or self-care (01) ==
LOC: MASS 11:15
PROVIDERS: PCP Family Medicine; Referring Provider Family Medicine; Visit Provider Family Medicine
DX: M54.2 Cervicalgia (principal); M54.9 Dorsalgia, unspecified
CPT/HCPCS: 97124

== ENCOUNTER 2021-10-17 14:44 | Outpatient (CLI) | payer OTHER, SELFPAY ==
--- NOTE | 2021-10-17 15:49 | NEURO ---
NCS and/or EMG Patient Report Ordering Doctor: Levi Schofield NP DATE OF SERVICE: 10/17/21 Indication: Chronic localized neck pain worsened by position. Intermittent achy right upper extremity pain. Findings: Nerve conduction studies were performed in the right upper extremity. The right median motor study recording the abductor pollicis brevis showed a normal amplitude, normal distal latency and normal conduction velocity. The right ulnar motor study recording the abductor digiti minimi showed a normal amplitude, normal distal latency and normal conduction velocity. No conduction block or focal slowing was present across the elbow. The right median sensory response recording digit two showed a normal amplitude, latency and conduction velocity. The right ulnar sensory response recording digit five showed a normal amplitude, latency and conduction velocity. The right radial sensory response recording over the extensor snuff box showed a normal amplitude, latency and conduction velocity. Needle EMG of the right upper extremity and cervical paraspinal muscles was performed. No denervation was seen in any muscle. All motor unit morphology, activation and recruitment patterns were normal. Impression: This is a normal study. There is no electrophysiologic evidence of cervical radiculopathy in the right upper extremity. In addition, there was no electrophysiologic evidence of median or ulnar entrapment neuropathy, or brachial plexopathy in the right upper extremity. Please note: the electrodiagnosis of radiculopathy is made on the basis of excluding peripheral nerve lesions on nerve conduction studies and the needle EMG demonstrating denervation and/or reinnervation in the distribution of one or more nerve roots (i.e., acute and/or chronic axonal loss). Thus, electrodiagnostic studies are insensitive in detecting radiculopathy in the absence of axonal loss (e.g., in the setting of compression resulting in intermittent ischemia or mechanical deformation; or demyelination without axonal loss). Thus, clinical correlation is required in the interpretation of this negative electrodiagnostic study for radiculopathy. Iban Dillard D.O. Multi Select Codes Neurology Neurology Interp Codes: 57708-74 Musc test done w/n test comp (interp) and 81338-34 Nrv cndj tst 5-6 studies (interp)
== END 2021-10-17 23:59 | disposition home or self-care (01) ==
LOC: PSN 14:46
PROVIDERS: PCP Family Medicine; Referring Provider Nurse Practitioner Family; Visit Provider Nurse Practitioner Family
DX: M79.601 Pain in right arm (principal)
CPT/HCPCS: 95886; 95909

== ENCOUNTER → 2022-04-13 | Outpatient (CLI) | payer OTHER, SELFPAY ==
[2022-04-13 10:50] LABS: ALB/GLOB Ratio 0.9 RATIO (0.9-2.4); AST(SGOT) 14 U/L (15-37); Alanine Aminotransfer ALT/SGPT 23 U/L (13-56); Albumin, Serum 3.5 g/dL (3.2-5.0); Alkaline Phosphatase 69 U/L (45-117); Anion Gap 7 (5-15); BUN 13 mg/dL (7-18); BUN/Creat Ratio 16.8 RATIO (10-20); Calcium,Total 8.6 mg/dL (8.5-10.1); Chloride 103 mmol/L (98-107); Cholesterol 238 mg/dL (200); Creatinine, Serum 0.78 mg/dL (0.55-1.02); EST Glomerular Filtration Rate 89 mL/min (>60); Est Glom Filt Rate - Afr Amer 108 mL/min (>60); Globulin 3.9 g/dL (2.2-4.2); Glucose 103 mg/dL (74-106); High Density Lipoprotein 53 mg/dL; Potassium 3.9 mmol/L (3.5-5.1); Protein, Total 7.4 g/dL (6.4-8.2); Sodium Level 138 mmol/L (136-145); Triglycerides 234 mg/dL; Very Low Density Lipoprotein 47 mg/dL (5-40)
== END | disposition home or self-care (01) ==
LOC: LAB 08:57
PROVIDERS: PCP Family Medicine; Referring Provider Family Medicine; Visit Provider Family Medicine
DX: Z00.00 Encounter for general adult medical examination without abnormal findings (principal)
CPT/HCPCS: 36415; 80053; 80061

== ENCOUNTER → 2023-01-22 | Outpatient (CLI) | payer OTHER, SELFPAY ==
--- NOTE | 2023-01-22 09:30 | RAD_ITS ---
INDICATION: LOW BACK PAIN EXAMINATION/TECHNIQUE: X-RAY - XR Sacroiliac Joints Min 3 Views COMPARISON: None. FINDINGS: No acute fracture or malalignment. No blastic or lytic lesions. No degenerative changes are seen. The soft tissues are unremarkable. RAD/S-I Jts 3 or More Views IMPRESSION: Evaluation is limited due to overlying bowel gas. Despite limitations: No acute radiographic abnormalities. Electronically Signed: Iban Andre MD at 20:09 EDT ,
[2023-01-22 10:46] LABS: Thyroid Stim Hormone (TSH) 1.41 uIU/mL (0.358-3.74)
[2023-01-22 11:14] LABS: Hematocrit 39.8 % (37-47); Hemoglobin 12.9 g/dL (12.0-15.0); Mean Corp Hgb Conc 32.4 g/dL (32-36); Mean Corpuscular Hgb 31.9 pg (27.0-32.0); Mean Corpuscular Volume 98.5 fL (81-99); Mean Platelet Vol. 10.1 fl (6.2-12.0); Platelet Count 301 K/mm3 (150-450); RBC Distribution Width CV 12.5 % (11.6-14.6); RBC Distribution Width SD 44.9 fl (35.1-43.9); Red Blood Count 4.04 M/mm3 (4.2-5.4); White Blood Count 7.1 K/mm3 (4.4-11.0)
[2023-01-25 16:09] LABS: ANTINUCLEAR ANTIBODIES DIRECT Negative (Negative)
== END | disposition home or self-care (01) ==
LOC: LAB 09:07
PROVIDERS: PCP Family Medicine; Referring Provider Family Medicine; Visit Provider Family Medicine
DX: M54.50 Low back pain, unspecified (principal); M25.50 Pain in unspecified joint
CPT/HCPCS: 36415; 72202; 84443; 85027; 86038; 86140

== ENCOUNTER → 2023-03-24 | Outpatient (CLI) | payer OTHER, SELFPAY ==
[2023-03-24 12:21] LABS: Absolute Lymphocyte Count 2.02 X10^3/uL (0.83-4.51); Absolute Neutrophil Count 5.7 X10^3/uL (2.0-7.7); Basophil# 0.07 X10^3/uL; Basophil% 0.8 % (0-1); Eosinophil# 0.36 X10^3/uL; Eosinophils% 4.2 % (0-5); Hematocrit 41.9 % (37-47); Hemoglobin 13.6 g/dL (12.0-15.0); Lymphocyte # 2.02 X10^3/ul (0.83-4.51); Lymphocyte % 23.5 % (19-41); Mean Corp Hgb Conc 32.5 g/dL (32-36); Mean Corpuscular Volume 98.6 fL (81-99); Mean Platelet Vol. 10.3 fl (6.2-12.0); Monocyte# 0.42 X10^3/uL; Monocyte% 4.9 % (0-10); NRBC Flagged by Analyzer 0 % (0-5); Neutrophil # 5.67 X10^3/uL (2.7-7.7); Platelet Count 354 K/mm3 (150-450); RBC Distribution Width CV 12.8 % (11.6-14.6); RBC Distribution Width SD 46.2 fl (35.1-43.9); Red Blood Count 4.25 M/mm3 (4.2-5.4); White Blood Count 8.6 K/mm3 (4.4-11.0)
[2023-03-24 13:03] LABS: ALB/GLOB Ratio 0.9 RATIO (0.9-2.4); AST(SGOT) 14 U/L (15-37); Alanine Aminotransfer ALT/SGPT 23 U/L (13-56); Albumin, Serum 3.7 g/dL (3.2-5.0); Alkaline Phosphatase 78 U/L (45-117); Anion Gap 5 (5-15); BUN 17 mg/dL (7-18); BUN/Creat Ratio 20.5 RATIO (10-20); Calcium,Total 9.4 mg/dL (8.5-10.1); Chloride 104 mmol/L (98-107); Creatinine, Serum 0.83 mg/dL (0.55-1.02); EST Glomerular Filtration Rate 82 mL/min (>60); Est Glom Filt Rate - Afr Amer 99 mL/min (>60); Globulin 4.1 g/dL (2.2-4.2); Glucose 105 mg/dL (74-106); Potassium 4.2 mmol/L (3.5-5.1); Protein, Total 7.8 g/dL (6.4-8.2); Rheumatoid Factor < 10.0 IU/mL (<15); Sodium Level 137 mmol/L (136-145)
[2023-03-24 13:23] LABS: Hepatitis B Surface Antibody Reactive; Hepatitis B Surface Antigen Non-Reactive (Nonreactive); Hepatitis C Antibody Non-Reactive (Nonreactive)
[2023-03-31 13:07] LABS: CCP IgG Antibodies 7 units (0-19); HLA B27 Negative (.); QNTFERON TB Mitogen Value > 10.00 IU/mL (.); QNTFERON TB Nil Value 0.04 IU/mL (.); QNTFERON TB1+ Ag Value 0.06 IU/mL (.); QNTFERON TB2+ Ag Value 0.06 IU/mL (.); QNTIFERON TB Positive Criteria Negative (Negative)
== END | disposition home or self-care (01) ==
PROVIDERS: PCP Family Medicine; Referring Provider Internal Medicine Rheumatology; Visit Provider Internal Medicine Rheumatology
DX: M46.90 Unspecified inflammatory spondylopathy, site unspecified (principal); M06.4 Inflammatory polyarthropathy; K58.9 Irritable bowel syndrome, unspecified
CPT/HCPCS: 36415; 80053; 81374; 85025; 86200; 86431; 86480; 86706; 86803; 87340

== ENCOUNTER → 2023-04-06 | Outpatient (CLI) | payer OTHER, SELFPAY ==
[2023-04-06 18:21] LABS: Internal QC Validated? YES +Cl - CLEAR BKGD; Pregnancy, Urine Negative Negative
== END | disposition home or self-care (01) ==
LOC: MTLAB 15:21
PROVIDERS: PCP Family Medicine; Visit Provider Internal Medicine Rheumatology
DX: M46.90 Unspecified inflammatory spondylopathy, site unspecified (principal); Z79.899 Other long term (current) drug therapy
CPT/HCPCS: 81025

== ENCOUNTER → 2023-04-20 | Outpatient (CLI) | payer OTHER, SELFPAY ==
[2023-04-20 11:08] LABS: Cholesterol 228 mg/dL (200); High Density Lipoprotein 55 mg/dL; Triglycerides 171 mg/dL; Very Low Density Lipoprotein 34 mg/dL (5-40)
== END | disposition home or self-care (01) ==
LOC: LAB 09:44
PROVIDERS: PCP Family Medicine; Referring Provider Family Medicine; Visit Provider Family Medicine
DX: Z00.00 Encounter for general adult medical examination without abnormal findings (principal)
CPT/HCPCS: 36415; 80061

== ENCOUNTER → 2023-05-19 | Outpatient (CLI) | payer OTHER, SELFPAY ==
[2023-05-19 16:01] LABS: Absolute Lymphocyte Count 1.76 X10^3/uL (0.83-4.51); Basophil# 0.08 X10^3/uL; Basophil% 1.1 % (0-1); Eosinophil# 0.26 X10^3/uL; Eosinophils% 3.5 % (0-5); Hematocrit 39.6 % (37-47); Lymphocyte # 1.76 X10^3/ul (0.83-4.51); Lymphocyte % 23.5 % (19-41); Mean Corp Hgb Conc 32.8 g/dL (32-36); Mean Corpuscular Hgb 32.6 pg (27.0-32.0); Mean Corpuscular Volume 99.2 fL (81-99); Mean Platelet Vol. 10.2 fl (6.2-12.0); Monocyte# 0.41 X10^3/uL; Monocyte% 5.5 % (0-10); NRBC Flagged by Analyzer 0 % (0-5); Neutrophil # 4.95 X10^3/uL (2.7-7.7); Neutrophil % 66.1 % (47-70); Platelet Count 369 K/mm3 (150-450); RBC Distribution Width CV 13.2 % (11.6-14.6); RBC Distribution Width SD 47.7 fl (35.1-43.9); Red Blood Count 3.99 M/mm3 (4.2-5.4); White Blood Count 7.5 K/mm3 (4.4-11.0)
[2023-05-19 16:23] LABS: ALB/GLOB Ratio 0.9 RATIO (0.9-2.4); AST(SGOT) 18 U/L (15-37); Alanine Aminotransfer ALT/SGPT 25 U/L (13-56); Albumin, Serum 3.4 g/dL (3.2-5.0); Alkaline Phosphatase 73 U/L (45-117); Anion Gap 5 (5-15); BUN 15 mg/dL (7-18); BUN/Creat Ratio 17.9 RATIO (10-20); Calcium,Total 8.4 mg/dL (8.5-10.1); Chloride 104 mmol/L (98-107); Creatinine, Serum 0.84 mg/dL (0.55-1.02); EST Glomerular Filtration Rate 81 mL/min (>60); Est Glom Filt Rate - Afr Amer 98 mL/min (>60); Globulin 3.9 g/dL (2.2-4.2); Glucose 113 mg/dL (74-106); Potassium 4.1 mmol/L (3.5-5.1); Protein, Total 7.3 g/dL (6.4-8.2); Sodium Level 138 mmol/L (136-145)
== END | disposition home or self-care (01) ==
LOC: MTLAB 12:43
PROVIDERS: PCP Family Medicine; Referring Provider Internal Medicine Rheumatology; Visit Provider Internal Medicine Rheumatology
DX: M46.90 Unspecified inflammatory spondylopathy, site unspecified (principal); Z79.899 Other long term (current) drug therapy
CPT/HCPCS: 36415; 80053; 85025

== ENCOUNTER → 2023-07-21 | Outpatient (CLI) | payer OTHER, SELFPAY ==
[2023-07-21 15:33] LABS: Hematocrit 40.8 % (37-47); Hemoglobin 13.4 g/dL (12.0-15.0); Mean Corp Hgb Conc 32.8 g/dL (32-36); Mean Corpuscular Hgb 32.4 pg (27.0-32.0); Mean Corpuscular Volume 98.8 fL (81-99); Mean Platelet Vol. 10.3 fl (6.2-12.0); Platelet Count 318 K/mm3 (150-450); RBC Distribution Width CV 12.7 % (11.6-14.6); RBC Distribution Width SD 46.4 fl (35.1-43.9); Red Blood Count 4.13 M/mm3 (4.2-5.4); White Blood Count 5.9 K/mm3 (4.4-11.0)
[2023-07-21 15:44] LABS: Internal QC Validated? YES +Cl - CLEAR BKGD; Monotest Negative (Negative); Record Kit Lot#, Mono 13231163
[2023-07-21 16:30] LABS: Anion Gap 5 (5-15); BUN 18 mg/dL (7-18); BUN/Creat Ratio 22.5 RATIO (10-20); Calcium,Total 9.1 mg/dL (8.5-10.1); Chloride 104 mmol/L (98-107); EST Glomerular Filtration Rate 85 mL/min (>60); Est Glom Filt Rate - Afr Amer 103 mL/min (>60); Glucose 90 mg/dL (74-106); Potassium 4.1 mmol/L (3.5-5.1); Sodium Level 138 mmol/L (136-145)
== END | disposition home or self-care (01) ==
LOC: MTLAB 11:47
PROVIDERS: PCP Family Medicine; Referring Provider Registered Nurse; Visit Provider Registered Nurse
DX: R53.83 Other fatigue (principal)
CPT/HCPCS: 36415; 80048; 85027; 86308

== ENCOUNTER → 2023-08-14 | Outpatient (CLI) | payer OTHER, SELFPAY ==
--- OUTSIDE RECORDS SUMMARY | 2023-08-14 11:37 | XMS RPT_ITS | CCD ---
Author Name Unknown Address [address] [place] [address] Organization [facility] Care Team Providers Care Tube Skiver Name Role Phone LAI HOROWITZ Unavailable Unavailable LEVI SCHOFIELD Unavailable Unavailable PAMELA HEATH Unavailable Unavailable LEVI SCHOFIELD Unavailable Unavailable Levi Schofield CNP Primary Care Provider 1( [phone] Levi Schofield CNP Primary Care Provider 1( [phone] Levi Schofield CNP Primary Care Provider MIKAL VANCE Attending Unavail able LEVI SCHOFIELD Primary Care Unavailable Allergies Allergy Classification Reported Allergen(s) Allergy Type Date of Onset Reaction(s) Facility (10 sources) Benzalkonium; Translations: [BENZALKONIUM CHLORIDE] Drug Allergy 09-14-2019 Other: See Comments [facility] Work Phone: Medications Completed/Discontinued Medications Medication Drug Class(es) Dates Sig (Normalized) Sig (Original) [id number]-[id number]-[id number]-B6-Zn-Cu- miko 250 mg-400 unit -40 mg-5 mg tab (9 sources) htvm-I5-evatsu-B 6-Zn-Cu -miko 250 mg-400 unit -40 mg-5 mg tab Take by mouth. 0 Active Problems Active Problems Problem Classification Problem Date Documented Da te Episodic/Chronic Genitourinary symptoms and ill-defined conditions (2 sources) Dysuria; Translations: [Dysuria] Onset: 04-21-2018 Episodic Nonmalignant breast conditions (3 sources) Lump in left breast; Translations: [Unspecified lump in the left breast, unspecified quadrant] Episodic Other gastrointestinal disorders (2 sources) Diarrhea, unspecified; Translations: [Diarrhea, unspecified] Onset: 04-08-2018 Episodic Past or Other Problems Problem Classification Problem Date Documented Da te Episodic/Chronic Other complications of (9 sources) Spotting per vagina in ; Translations: [Spotting complicating , unspecified trimester] Onset: 09-14-2019 09-14-2019 Episodic Other complications of (9 sources) Multigravida of advanced maternal age; Translations: [Supervision of elderly multigravida, unspecified trimester] Onset: 09-14-2019 05-30-2020 Episodic Other complications of (9 sources) H/O: premature delivery; Translations: [Supervision of other high risk pregnancies, unspecified trimester] Onset: 09-14-2019 05-30-2020 Episodic Residual codes; unclassified (9 sources) FH: Congenital heart disease; Translations: [Family history of other congenital malformations, deformations and chromosomal abnormalities] Onset: 09-14-2019 05-30-2020 Episodic Screening and history of mental health and substance abuse codes (9 sources) H/O: depression; Translations: [Personal history of other mental and behavioral disorders] Onset: 09-14-2019 05-30-2020 Episodic Results Test Name Value Interpretation Reference Range Facil ity Vital Signs Date Time Vital Sign Value Performing Clinician Faci [facility] 05-13-2023 11:17-0400 Body height 162.6 cm Mikal Betancur MD Work Phone: [facility] 05-13-2023 11:17-0400 Body weight 92.53 kg Mikal Betancur MD Work Phone: [facility] 05-13-2023 11:17-0400 Diastolic blood pressure 70 mm[Hg] Mikal Betancur MD Work Phone: [facility] 05-13-2023 11:17-0400 Systolic blood pressure 106 mm[Hg] Mikal Betancur MD Work Phone: [facility] 03-03-2022 14:33-0400 Body height 164 cm Mikal Betancur MD Work Phone: [facility] 03-03-2022 14:33-0400 Body weight 95.25 kg Mikal Betancur MD Work Phone: [facility] 03-03-2022 14:33-0400 Diastolic blood pressure 70 mm[Hg] Mikal Betancur MD Work Phone: [facility] 03-03-2022 14:33-0400 Systolic blood pressure 120 mm[Hg] Mikal Betancur MD Work Phone: [facility] Encounters Encounter Date Encounter Type Care Provider Facility Start: 05-13-2023 End: 05-13-2023 ambulatory MIKAL BETANCUR Facility:[facility] Start: 05-13-2023 End: 05-13-2023 Patient encounter procedure Mikal Betancur MD Work Phone: OB/Gynecology Procedures Date Procedure Procedure Detail Performing Clinician Start: 04-01-2022 Us breast uni real t cruz with image limited Mikal Betancur MD Work Phone: Start: 04-01-2022 Digital breast tomosynthesis bilateral Mikal Betancur MD Work Phone: Plan of Treatment Date Care Activity Detail Author Start: 06-18-2025 HPV TESTING HPV TESTING [facility] Start: 06-18-2025 PAP TESTING PAP TESTING [facility] Start: 03-26-2023 Covid-19 Vaccine ( season) Covid-19 Vaccine () [facility] Start: 03-26-2023 Influenza vaccination [facility] Start: 07-26-2022 DEPRESSION ASSESSMENT DEPRESSION ASSESSMENT [facility] Start: 03-26-2022 Influenza vaccination INFLUENZA (#1) [facility] Start: 09-02-2021 COVID-19 VACCINE (4 - Moderna series) COVID-19 VACCINE (4 - Moderna series) [facility] Start: 2004 Shingrix Vaccine (1 of 2) Shingrix Vaccine (1 of 2) [facility] Start: 2004 Urine microalbumin profile [facility] Start: 2003 HEPATITIS C SCREENING HEPATITIS C SCREENING [facility] Start: 2003 HIV SCREENING HIV SCREENING [facility] Start: 1997 Adult depression screening assessment DEPRESSION SCREENING [facility] Start: 1991 Pneumococcal vaccination Pneumococcal Vaccine (1 - PCV) [facility] Start: 1985 HEPATITIS B (1 of 3 - 3-dose series) HEPATITIS B (1 of 3 - 3-dose series) [facility] Start: 1985 Hepatitis B Vaccine (1 of 3 - 3-dose series) Hepatitis B Vaccine (1 of 3 - 3-dose series) [facility] End: 04-02-2023 Diagnostic mammography computer-aided detcj bi [facility] Radiology Routine Mass of left breast, unspecified quadrant 1 Occurrences starting 03/03/2022 until 04/02/2023 [facility] Work Phone: Immunizations Immunization Date Immunization Notes Care Provider Juliana mejias 06-24-2022 influenza virus vacc ine, unspecified formulation Mikal Betancur MD Work Phone: [facility] Payers Date Payer Category Payer Private Health Insurance [facility] [employer] [id number] 2022-Present [phone] [address] [place] [address] HMO [id number] 2022 Unknown [id number] 2019 Unknown [id number] 2018 Unknown [id number] Social History Date Type Detail Facility Start: 03-03-2022 Tobacco smoking stat us AKIS Never smoked tobacco [facility] Start: 07-16-2020 End: 05-13-2023 Alcohol intake Ex-drinker (finding) [facility] Start: 05-30-2020 History SDOH Financial 5 [facility] Start: 05-30-2020 History SDOH Food Worry 1 [facility] Start: 05-30-2020 History SDOH Transpo rt Med 2 [facility] Start: 09-14-2019 Education 17 [facility] Start: 1985 Sex Assigned At Female C [facility] Start: 12-08-2021 End: 2022 Exposure to SARS-CoV-2 (event) Not sure [facility] Work Phone: Start: 03-03-2022 Tobacco use and exposure Smokeless tobacco non-user [facility] Start: 03-03-2022 End: 05-13-2023 History of Social function [facility] Work Phone: Start: 03-03-2022 End: 05-13-2023 Tobacco use panel [facility] Work Phone: How hard is it for y ou to pay for the very basics like food, housing, medical care, and heating Not hard at all [facility] Work Phone: (I/We) worried fabi er (my/our) food would run out before (I/we) got money to buy more. Never true [facility] Work Phone: Start: 05-30-2020 Gender identity Identifies as female gender (finding) [facility] Start: 05-30-2020 Sexual orientation Heterosexual (fin ding) [facility] Clinical Notes 09-08-2021 to 05-13-2023 Mikal Vance MD - 05/13/2023 11:12 AM EDTTelephone Encounter - Daisy Wilson LPN - 04/02/2023 11:26 AM RT Yaritza(R) - 04/01/2022 10:00 AM EDT Note Date & Type Note Facility 05-13-2023 Note HNO ID: [id number] Author: Mikal Vance MD Service: ? Author Type: Physician Type: Progress Notes Filed: 05/13/2023 12:19 PM Note Text: Customer Operations Specialist offered: Patient declines. Nnamdi is a 38 year old who presents for an annual gynecologic exam without complaints. On MTX- wants a second opinion from rheumatology Menses: cycles every 28 days and 5 days of flow. Contraception: none HPV vaccine: No Last Pap: 06/26/2020 normal HPV: 06/24/2020 negative History of abnormal pap: No Last mammogram: never Sexually active: Yes History of STDS: None Patient concerns for STD exposure: No. Pain with intercourse: No Postcoital bleeding: No Hot flashes: No Night sweats: No Vaginal dryness: No Exercise: walking Diet: OB History T1 L2 SAB1 IAB0 Ectopic0 Multiple0 Live Births2 Medical Assistant History LMP: 04/28/2023 (Approximate), Unknown Age at Menarche: Age at First : Age at Menopause: Medical Assistant History Comments: Sexual Activity: Yes; Male Contraception: No contraception data on record PAST MEDICAL HISTORY Diagnosis Date Asthma Depression depression Unspecified asthma(493.90) PAST SURGICAL HISTORY Procedure Laterality Date PAST SURGICAL HISTORY OF ACL repair TONSILLECTOMY PRIMARY/SECONDARY Tonsillectomy TX MISSED FIRST TRIMESTER SURGICAL N/A 07/04/2020 [facility] for missed ab, 9 week mono/di twins FAMILY HISTORY Problem Relation Age of Onset Depression Mother Hyperlipidemia Mother Allergies Father Asthma Father Aneurysm Sister brain aneurysm ? Anxiety disorder Brother Depression Brother Heart Brother congential heart valve issue Cervical Cancer Maternal Grandmother Alcohol/Drug Maternal Grandfather Stroke Maternal Grandfather Breast Cancer Paternal Grandmother Heart Paternal Grandmother Cancer Paternal Grandfather LEUKEMIA No Known Problems Daughter No Known Problems Son SOCIAL HISTORY Social History Tobacco Use Smoking status: Never Smokeless tobacco: Never Vaping Use Vaping Use: Never used Substance Use Topics Alcohol use: Not Currently Comment: occasional Drug use: No REVIEW OF SYSTEMS Abdomen: No bloating, early satiety, indigestion, or increased flatulence. IBS symptoms Bladder: No dysuria, gross hematuria, urinary frequency, urinary urgency, or incontinence. Breast: No breast lumps, nipple d/c, overlying skin changes, redness or skin retraction. Allergies and current medication updated:Yes EXAM: BP 106/70 Ht 5' 4 (1.63m) Wt 204 lb (92.5kg) LMP 04/28/2023 BMI 35.00 kg/(m2). GENERAL: pleasant, female in no apparent distress HEENT: Normocephalic, atraumatic, mucus membranes moist, and no lesions NECK: Supple, full range of motion, no adenopathy, and thyroid normal DERMATOLOGY: Normal, without lesions, non-icteric, and non-hirsute BREAST: soft, non-tender, symmetric, no dominant mass, normal nipple-areolar complex, no lymphadenopathy, and no nipple discharge ABDOMEN: soft, non-tender, and no masses PELVIC: external genitalia normal, normal Bartholin's glands, urethra, Comstock's glands, no vulvar lesions, no cervical lesions, good vaginal support, physiologic discharge present, normal appearing perineal body and perianal region BIMANUAL: uterus normal size, shape and consistency, no adnexal masses, and non-tender RECTOVAGINAL: deferred. NEURO: alert and oriented x3,exam grossly non-focal EXTREMITIES: normal ASSESSMENT/PLAN: 1) Health maintenance: Pap/HPV up to date. Mammogram starting age 40. Nutrition, exercise and routine health maintenance exams reviewed. HPV vaccine: discussed 2) Contraception: none. Contraceptive options reviewed and information provided. Reviewed IUD, Vasectomy or salpingectomy 3) STD screening: Declined STD check. 4) Follow up one year or sooner as needed Mikal Smith MD [facility] 05-13-2023 History of Presen t illness Narrative Customer Operations Specialist offered: Patient declines. Nnamdi is a 38 year old who presents for an annual gynecologic exam without complaints. On MTX- wants a second opinion from rheumatology Menses: cycles every 28 days and 5 days of flow. Contraception: none HPV vaccine: No Last Pap: 06/26/2020 normal HPV: 06/24/2020 negative History of abnormal pap: No Last mammogram: never Sexually active: Yes History of STDS: None Patient concerns for STD exposure: No. Pain with intercourse: No Postcoital bleeding: No Hot flashes: No Night sweats: No Vaginal dryness: No Exercise: walking Diet: OB History T1 L2 SAB1 IAB0 Ectopic0 Multiple0 Live Births2 Medical Assistant History LMP: 04/28/2023 (Approximate), Unknown Age at Menarche: Age at First : Age at Menopause: Medical Assistant History Comments: Sexual Activity: Yes; Male Contraception: No contraception data on record PAST MEDICAL HISTORY Diagnosis Date Asthma Depression depression Unspecified asthma(493.90) PAST SURGICAL HISTORY Procedure Laterality Date PAST SURGICAL HISTORY OF ACL repair TONSILLECTOMY PRIMARY/SECONDARY <AGE 12 Tonsillectomy TX MISSED FIRST TRIMESTER SURGICAL N/A 07/04/2020 [facility] for missed ab, 9 week mono/di twins FAMILY HISTORY Problem Relation Age of Onset Depression Mother Hyperlipidemia Mother Allergies Father Asthma Father Aneurysm Sister brain aneurysm ? Anxiety disorder Brother Depression Brother Heart Brother congential heart valve issue Cervical Cancer Maternal Grandmother Alcohol/Drug Maternal Grandfather Stroke Maternal Grandfather Breast Cancer Paternal Grandmother Heart Paternal Grandmother Cancer Paternal Grandfather LEUKEMIA No Known Problems Daughter No Known Problems Son SOCIAL HISTORY Social History Tobacco Use Smoking status: Never Smokeless tobacco: Never Vaping Use Vaping Use: Never used Substance Use Topics Alcohol use: Not Currently Comment: occasional Drug use: No REVIEW OF SYSTEMS Abdomen: No bloating, early satiety, indigestion, or increased flatulence. IBS symptoms Bladder: No dysuria, gross hematuria, urinary frequency, urinary urgency, or incontinence. Breast: No breast lumps, nipple d/c, overlying skin changes, redness or skin retraction. Allergies and current medication updated:Yes EXAM: BP 106/70 Ht 5' 4 (1.63m) Wt 204 lb (92.5kg) LMP 04/28/2023 BMI 35.00 kg/(m^2). GENERAL: pleasant, female in no apparent distress HEENT: Normocephalic, atraumatic, mucus membranes moist, and no lesions NECK: Supple, full range of motion, no adenopathy, and thyroid normal DERMATOLOGY: Normal, without lesions, non-icteric, and non-hirsute BREAST: soft, non-tender, symmetric, no dominant mass, normal nipple-areolar complex, no lymphadenopathy, and no nipple discharge ABDOMEN: soft, non-tender, and no masses PELVIC: external genitalia normal, normal Bartholin's glands, urethra, Comstock's glands, no vulvar lesions, no cervical lesions, good vaginal support, physiologic discharge present, normal appearing perineal body and perianal region BIMANUAL: uterus normal size, shape and consistency, no adnexal masses, and non-tender RECTOVAGINAL: deferred. NEURO: alert and oriented x3,exam grossly non-focal EXTREMITIES: normal ASSESSMENT/PLAN: 1) Health maintenance: Pap/HPV up to date. Mammogram starting age 40. Nutrition, exercise and routine health maintenance exams reviewed. HPV vaccine: discussed 2) Contraception: none. Contraceptive options reviewed and information provided. Reviewed IUD, Vasectomy or salpingectomy 3) STD screening: Declined STD check. 4) Follow up one year or sooner as needed Mikal Smith MD documented in this encounter [facility] 04-02-2023 Miscellaneous Notes Formattin g of this note might be different from the original. See pt's mychart refill request below. Pt has scheduled upcoming yearly exam. Please advise Daisy Wilson LPN documented in this encounter [facility] 04-01-2022 History of Presen t illness Narrative Radiology Service Progress Note PATIENT NAME: NNAMDI Barahona DATE OF SERVICE: April 01, 2022 TIME: 10:10 AM PATIENT IDENTITY VERIFICATION COMPLETED USING TWO (2) IDENTIFIERS: Name and Date of confirmed by patient verbally. FALL SCREENING: Has the patient had 2 falls in the last year or 1 fall with injury or currently using an Ambulatory Assistive Device (Walker, Cane, Wheelchair, Crutches, etc.)? No PATIENT GENDER DATA: Female. status: : No status: NO. PATIENT RELEVANT IMPLANT DATA REVIEWED: Not Applicable RADIOLOGY DEPARTMENT: Ultrasound PERIPHERAL IV DATA: Not applicable SIGNED BY: RT Maurice(R) April 01, 2022 10:10 AM documented in this encounter [facility] 04-01-2022 History of Presen t illness Narrative Radiology Service Progress Note PATIENT NAME: NNAMDI Barahona DATE OF SERVICE: April 01, 2022 TIME: 10:00 AM PATIENT IDENTITY VERIFICATION COMPLETED USING TWO (2) IDENTIFIERS: Name and Date of confirmed by patient verbally. FALL SCREENING: Has the patient had 2 falls in the last year or 1 fall with injury or currently using an Ambulatory Assistive Device (Walker, Cane, Wheelchair, Crutches, etc.)? No PATIENT GENDER DATA: Female. status: : No status: NO. PATIENT RELEVANT IMPLANT DATA REVIEWED: Not Applicable RADIOLOGY DEPARTMENT: Mammography PERIPHERAL IV DATA: Not applicable SIGNED BY: Estefania Freeman April 01, 2022 10:00 AM documented in this encounter [facility] 03-04-2022 Miscellaneous Notes Formattin g of this note is different from the original. Patient request for medication is as follows: Requested Prescriptions Pending Prescriptions Disp Refills sertraline (ZOLOFT) 50 mg tablet 30 tablet 11 Sig: Take 1 tablet by mouth once daily. Last annual exam: 03/03/22 Please approve the above prescription(s) to electronically send to pharmacy. Jennifer Torres RN documented in this encounter [facility] 03-03-2022 History of Presen t illness Narrative Nnamdi is a 36 year old who presents for an annual gynecologic exam without complaints. 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 Contraception: none HPV vaccine: Yes Last Pap: 06/26/2020 normal HPV: 06/24/2020 negative History of abnormal pap: No Last mammogram: never Sexually active: Yes History of STDS: None Patient concerns for STD exposure: No. Pain with intercourse: No Postcoital bleeding: No Exercise: walking Diet: balanced OB History T1 L2 SAB1 IAB0 Ectopic0 Multiple0 Live Births2 Medical Assistant History LMP: 02/23/2022 (Approximate), Unknown Age at Menarche: Age at First : Age at Menopause: Medical Assistant History Comments: Sexual Activity: Yes; Male; NUVA-RING Contraception: Other PAST MEDICAL HISTORY Diagnosis Date Asthma Depression depression Unspecified asthma(493.90) PAST SURGICAL HISTORY Procedure Laterality Date PAST SURGICAL HISTORY OF ACL repair TONSILLECTOMY PRIMARY/SECONDARY <AGE 12 Tonsillectomy TX MISSED FIRST TRIMESTER SURGICAL N/A 07/04/2020 [facility] for missed ab, 9 week mono/di twins FAMILY HISTORY Problem Relation Age of Onset Depression Mother Hyperlipidemia Mother Allergies Father Asthma Father Anxiety disorder Brother Depression Brother Heart Brother congential heart valve issue Colon Cancer Maternal Grandmother Breast Cancer Paternal Grandmother Heart Paternal Grandmother Cancer Paternal Grandfather LEUKEMIA Aneurysm Sister brain aneurysm ? Alcohol/Drug Maternal Grandfather Stroke Maternal Grandfather No Known Problems Daughter No Known Problems Son SOCIAL HISTORY Social History Tobacco Use Smoking status: Never Smokeless tobacco: Never Vaping Use Vaping Use: Never used Substance Use Topics Alcohol use: Not Currently Comment: occasional Drug use: No REVIEW OF SYSTEMS Abdomen: No abdominal pain, nausea, vomiting, diarrhea, or constipation. No bloating, early satiety, indigestion, or increased flatulence. Does have IBS but overall controlled Bladder: No dysuria, gross hematuria, urinary frequency, urinary urgency, or incontinence. Breast: No breast lumps, nipple d/c, overlying skin changes, redness or skin retraction. Allergies and current medication updated:Yes EXAM: BP 120/70 Ht 5' 4.567 (1.64m) Wt 210 lb (95.3kg) LMP 02/23/2022 BMI 35.42 kg/(m^2). GENERAL: pleasant, female in no apparent distress HEENT: Normocephalic, atraumatic, mucus membranes moist, and no lesions NECK: Supple, full range of motion, no adenopathy, and thyroid normal DERMATOLOGY: Normal, without lesions, non-icteric, and non-hirsute BREAST: soft, non-tender, symmetric, normal nipple-areolar complex, no lymphadenopathy, no nipple discharge, and left breast at 3-4:00 with oblong density- soft and mobile- ?? Fatty tissue vs mass. ABDOMEN: soft, non-tender, and no masses PELVIC: external genitalia normal, normal Bartholin's glands, urethra, Comstock's glands, no vulvar lesions, no cervical lesions, good vaginal support, physiologic discharge present, normal appearing perineal body and perianal region BIMANUAL: uterus normal size, shape and consistency, no adnexal masses, and non-tender RECTOVAGINAL: deferred. NEURO: alert and oriented x3,exam grossly non-focal EXTREMITIES: normal ASSESSMENT/PLAN: 1) Health maintenance: Pap/HPV up to date. Mammogram ordered. Nutrition, exercise and routine health maintenance exams reviewed. 2) Contraception: none. Contraceptive options reviewed and information provided. 3) STD screening: Declined STD check. 4) Follow up one year or sooner as needed Mikal Smith MD Customer Operations Specialist offered: Patient declines. documented in this encounter [facility] 01-27-2022 Miscellaneous Notes Patient comment: Due to childcare issue, had to reschedule appointment from january to February. May I get 30 day supply until appt? Thank you Pending Prescriptions Disp Refills SERTRALINE 50 MG TABLET 30 tablet 0 Sig: Take 1 tablet by mouth once daily. KARSON: No documented in this encounter [facility] 01-01-2022 Miscellaneous Notes Patient called requesting refill. Pending Prescriptions Disp Refills SERTRALINE 50 MG TABLET 30 tablet 0 Sig: Take 1 tablet by mouth once daily. KARSON: No Next annual exam: 01/19/22 Please approve the above prescription(s) to electronically send to pharmacy. Jennifer Torres RN documented in this encounter [facility] 09-08-2021 Miscellaneous Notes Patient notified. Feels that dysuria has improved some. She will call back for appointment if symptoms get worse again. Declines appointment for now. Maritza Teague RN Left message for patient to call office. Jennifer Torres RN ----- Message from Lexi Juarez MD sent at 09/08/2021 4:35 PM EST ----- Please notify pt of contaminated urine cx - if her symptoms have not improved will re collect and recommend visit as well documented in this encounter [facility]* Diagnosis Mass of left breast, unspecified quadrant [facility] Diagnosis Mass of left breast, unspecified quadrant [facility] Diagnosis Encounter for gynecological examination (general) (routine) without abnormal findings- Primary documented in this encounter [facility] for referral (narrative)* Diagnostic Procedure Only (Routine) - Authorized Specialty Diagnoses / Procedures Referred By Melba gudino Referred To Contact [facility] Diagnoses Mass of left breast, unspecified quadrant Procedures US BREAST LTD LT US BREAST UNI REAL TIME WITH IMAGE LIMITED Mikal Vance MD [address] [place] [address] [facility] [address] [place] [id number] Referral ID Status Reason Start Date Expiration Date Visits Requested Visits Authorized [id number] Authorized Auto-Generat ed Referral 03/03/2022 04/02/2023 1 1 * Diagnostic Procedure Only (Routine) - Authorized Specialty Diagnoses / Procedures Referred By Melba gudino Referred To Contact [facility] Diagnoses Mass of left breast, unspecified quadrant Procedures [facility] DIAGNOSTIC MAMMOGRAPHY COMPUTER-AIDED DETCJ BI Mikal Vance MD [address] [place] [address] [facility] [address] [place] [id number] Referral ID Status Reason Start Date Expiration Date Visits Requested Visits Authorized [id number] Authorized Auto-Generat ed Referral 03/03/2022 04/02/2023 1 1 [facility] for referral (narrative)* Diagnostic Procedure Only (Routine) - Closed Specialty Diagnoses / Procedures Referred By Contac t Referred To Contact [facility] Diagnoses Mass of left breast, unspecified quadrant Procedures US BREAST LTD LT US BREAST UNI REAL TIME WITH IMAGE LIMITED Mikal Vance MD [address] [place] [address] [facility] [address] [place] [address] Referral ID Status Reason Start Date Expiration Date V isits Requested Visits Authorized [id number] Closed Auto-Generate d Referral 03/03/2022 04/02/2023 1 1 [facility] Summary Purpose Family History No Family History Records FoundNo Family History Records Found Advance Directives No Advanced Directives Records FoundNo Advanced Directives Records Found Additional Source Comments INFORMATION SOURCE (unrecogn ized section and content) DATE CREATED AUTHOR AUTHOR'S ORGANIZ ATION 05/15/2023 [facility] Source Comments (unrecognize d section and content) In the event this informatio n is protected by the Federal Confidentiality of Alcohol and Drug Abuse Patient Records regulations: The Federal rules restrict any use of the information to criminally investigate or prosecute any alcohol or drug abuse patient.[place] the event this information is protected by the Federal Confidentiality of Alcohol and Drug Abuse Patient Records regulations: The Federal rules restrict any use of the information to criminally investigate or prosecute any alcohol or drug abuse patient.[place] the event this information is protected by the Federal Confidentiality of Alcohol and Drug Abuse Patient Records regulations: The Federal rules restrict any use of the information to criminally investigate or prosecute any alcohol or drug abuse patient.[place] the event this information is protected by the Federal Confidentiality of Alcohol and Drug Abuse Patient Records regulations: The Federal rules restrict any use of the information to criminally investigate or prosecute any alcohol or drug abuse patient.[place] the event this information is protected by the Federal Confidentiality of Alcohol and Drug Abuse Patient Records regulations: The Federal rules restrict any use of the information to criminally investigate or prosecute any alcohol or drug abuse patient.[place] the event this information is protected by the Federal Confidentiality of Alcohol and Drug Abuse Patient Records regulations: The Federal rules restrict any use of the information to criminally investigate or prosecute any alcohol or drug abuse patient.[place]In the event this information is protected by the Federal Confidentiality of Alcohol and Drug Abuse Patient Records regulations: The Federal rules restrict any use of the information to criminally investigate or prosecute any alcohol or drug abuse patient.[place]In the event this information is protected by the Federal Confidentiality of Alcohol and Drug Abuse Patient Records regulations: The Federal rules restrict any use of the information to criminally investigate or prosecute any alcohol or drug abuse patient.[place]In the event this information is protected by the Federal Confidentiality of Alcohol and Drug Abuse Patient Records regulations: The Federal rules restrict any use of the information to criminally investigate or prosecute any alcohol or drug abuse patient.[place] Reason for Visit (unrecogniz ed section and content) Reason Onset Date Comments Refill Request 01/01/2022 Reason Onset Date Comments Refill Request 01/26/2022 Reason Comments Yearly Exam Reason Onset Date Comments Refill Request 03/04/2022 Reason Comments Radiology Mammogram Specialty Diagnoses / Procedures Referred By Contac t Referred To Contact [facility] Diagnoses Mass of left breast, unspecified quadrant Procedures ARMIDA DIAGNOSTIC BILAT DIAGNOSTIC MAMMOGRAPHY COMPUTER-AIDED DETCJ BI Mikal Vance MD [address] [place] [address] [facility] [address] [place] [address] Referral ID Status Reason Start Date Expiration Date V isits Requested Visits Authorized [id number] Closed Auto-Generate d Referral 03/03/2022 04/02/2023 1 1 Reason Comments Radiology US Specialty Diagnoses / Procedures Referred By Contkayli t Referred To Contact [facility] Diagnoses Mass of left breast, unspecified quadrant Procedures US BREAST LTD LT US BREAST UNI REAL TIME WITH IMAGE LIMITED Mikal Vance MD [address] [place] [address] [facility] [address] [place] [address] Referral ID Status Reason Start Date Expiration Date V isits Requested Visits Authorized [id number] Closed Auto-Generate d Referral 03/03/2022 04/02/2023 1 1 Reason Onset Date Comments Refill Request 04/02/2023 Reason Comments Yearly Exam Care Teams (unrecognized sec tion and content) Tube Skiver Relationship Specialty Start Date End Date Levi Schofield, [facility] [address] [place] [address] PCP - General 01/08/10 Tube Skiver Relationship Specialty Start Date End Date Levi Schofield, [employer] [address] [place] [address] PCP - General 01/08/10 Tube Skiver Relationship Specialty Start Date End Date Levi Schofield, [employer] [address] [place] [address] PCP - General 01/08/10 Tube Skiver Relationship Specialty Start Date End Date Levi Schofield, [employer] [address] [place] [address] PCP - General 01/08/10 Tube Skiver Relationship Specialty Start Date End Date Levi Schofield CNP [address] [place] [id number] PCP - General 01/08/10 Tube Skiver Relationship Specialty Start Date End Date Levi Schofield CNP [address] [place] [id number] PCP - General 01/08/10 FOR RECORDS PERTAINING TO PATIENTS WHO ARE OR HAVE BEEN ENROLLED IN A CHEMICAL DEPENDENCY/SUBSTANCEABUSE PROGRAM, SOME INFORMATION MAY BE OMITTED. This clinical summary was aggregated from multiple sources. Caution should be exercised in using it in the provision of clinical care. This summary normalizes information from multiple sources, and as a consequence, information in this document may materially change the coding, format and clinical context of patient data. In addition, data may be omitted in some cases. CLINICAL DECISIONS SHOULD BE BASED ON THE PRIMARY CLINICAL RECORDS. [facility] [employer] [facility]. provides no warranty or guarantee of the accuracy or completeness of information in this document.
[2023-08-14 11:46] LABS: Absolute Lymphocyte Count 1.93 X10^3/uL (0.83-4.51); Absolute Neutrophil Count 3.5 X10^3/uL (2.0-7.7); Basophil# 0.07 X10^3/uL; Basophil% 1.2 % (0-1); Eosinophil# 0.22 X10^3/uL; Eosinophils% 3.6 % (0-5); Hematocrit 40.2 % (37-47); Hemoglobin 13.3 g/dL (12.0-15.0); Lymphocyte # 1.93 X10^3/ul (0.83-4.51); Lymphocyte % 31.7 % (19-41); Mean Corp Hgb Conc 33.1 g/dL (32-36); Mean Corpuscular Hgb 32.7 pg (27.0-32.0); Mean Corpuscular Volume 98.8 fL (81-99); Mean Platelet Vol. 9.6 fl (6.2-12.0); Monocyte# 0.32 X10^3/uL; Monocyte% 5.3 % (0-10); NRBC Flagged by Analyzer 0 % (0-5); Neutrophil # 3.52 X10^3/uL (2.7-7.7); Neutrophil % 57.9 % (47-70); Platelet Count 364 K/mm3 (150-450); RBC Distribution Width SD 46.4 fl (35.1-43.9); Red Blood Count 4.07 M/mm3 (4.2-5.4); White Blood Count 6.1 K/mm3 (4.4-11.0)
[2023-08-14 12:09] LABS: Erythrocyte Sedimentation Rate 19 mm/hr (0-30)
[2023-08-14 12:34] LABS: ALB/GLOB Ratio 0.9 RATIO (0.9-2.4); AST(SGOT) 17 U/L (15-37); Alanine Aminotransfer ALT/SGPT 22 U/L (13-56); Albumin, Serum 3.5 g/dL (3.2-5.0); Alkaline Phosphatase 70 U/L (45-117); Anion Gap 2 (5-15); BUN 14 mg/dL (7-18); BUN/Creat Ratio 15.7 RATIO (10-20); Calcium,Total 8.8 mg/dL (8.5-10.1); Chloride 106 mmol/L (98-107); Creatinine, Serum 0.89 mg/dL (0.55-1.02); EST Glomerular Filtration Rate 75 mL/min (>60); Est Glom Filt Rate - Afr Amer 91 mL/min (>60); Glucose 103 mg/dL (74-106); Potassium 4.1 mmol/L (3.5-5.1); Protein, Total 7.5 g/dL (6.4-8.2); Sodium Level 138 mmol/L (136-145)
== END | disposition home or self-care (01) ==
LOC: LAB 11:28
PROVIDERS: PCP Family Medicine; Referring Provider Internal Medicine Rheumatology; Visit Provider Internal Medicine Rheumatology
DX: M06.4 Inflammatory polyarthropathy (principal); K58.9 Irritable bowel syndrome, unspecified; J45.909 Unspecified asthma, uncomplicated; F41.9 Anxiety disorder, unspecified; F32.A Depression, unspecified; Z79.899 Other long term (current) drug therapy
CPT/HCPCS: 36415; 80053; 85025; 85652; 86140

== ENCOUNTER → 2023-10-08 | Outpatient (CLI) | payer OTHER, SELFPAY ==
[2023-10-08 13:21] LABS: Absolute Lymphocyte Count 2.17 X10^3/uL (0.83-4.51); Absolute Neutrophil Count 4.1 X10^3/uL (2.0-7.7); Basophil# 0.05 X10^3/uL; Basophil% 0.7 % (0-1); Eosinophil# 0.21 X10^3/uL; Eosinophils% 3.1 % (0-5); Hematocrit 40.4 % (37-47); Hemoglobin 13.4 g/dL (12.0-15.0); Lymphocyte # 2.17 X10^3/ul (0.83-4.51); Lymphocyte % 31.7 % (19-41); Mean Corp Hgb Conc 33.2 g/dL (32-36); Mean Corpuscular Hgb 32.1 pg (27.0-32.0); Mean Corpuscular Volume 96.7 fL (81-99); Monocyte# 0.28 X10^3/uL; Monocyte% 4.1 % (0-10); NRBC Flagged by Analyzer 0 % (0-5); Neutrophil # 4.11 X10^3/uL (2.7-7.7); Platelet Count 338 K/mm3 (150-450); RBC Distribution Width CV 12.9 % (11.6-14.6); RBC Distribution Width SD 44.8 fl (35.1-43.9); Red Blood Count 4.18 M/mm3 (4.2-5.4); White Blood Count 6.9 K/mm3 (4.4-11.0)
[2023-10-08 13:29] LABS: Erythrocyte Sedimentation Rate 10 mm/hr (0-30)
[2023-10-08 14:05] LABS: ALB/GLOB Ratio 0.9 RATIO (0.9-2.4); AST(SGOT) 17 U/L (15-37); Alanine Aminotransfer ALT/SGPT 22 U/L (13-56); Albumin, Serum 3.5 g/dL (3.2-5.0); Alkaline Phosphatase 70 U/L (45-117); Anion Gap 5 (5-15); BUN 14 mg/dL (7-18); BUN/Creat Ratio 16.2 RATIO (10-20); Calcium,Total 8.9 mg/dL (8.5-10.1); Chloride 105 mmol/L (98-107); Creatinine, Serum 0.87 mg/dL (0.55-1.02); EST Glomerular Filtration Rate 78 mL/min (>60); Est Glom Filt Rate - Afr Amer 94 mL/min (>60); Globulin 3.9 g/dL (2.2-4.2); Glucose 140 mg/dL (74-106); Potassium 3.9 mmol/L (3.5-5.1); Protein, Total 7.4 g/dL (6.4-8.2); Sodium Level 138 mmol/L (136-145)
== END | disposition home or self-care (01) ==
LOC: LAB 12:36
PROVIDERS: PCP Family Medicine; Referring Provider Internal Medicine Rheumatology; Visit Provider Internal Medicine Rheumatology
DX: M06.4 Inflammatory polyarthropathy (principal); Z79.899 Other long term (current) drug therapy
CPT/HCPCS: 36415; 80053; 85025; 85652; 86140

== ENCOUNTER → 2023-11-15 | Outpatient (CLI) | payer OTHER, SELFPAY ==
--- NOTE | 2023-11-15 07:30 | US_ITS ---
STUDY: ABDOMINAL ULTRASOUND REASON FOR EXAM: Female, 38 years old. Generalized abdominal pain TECHNIQUE: Transabdominal ultrasound was performed with real-time and static ceron scale imaging. TECHNICAL QUALITY: Adequate. COMPARISON: None. FINDINGS: Liver: The liver measures 16.3 cm. There is increased echogenicity consistent with fatty infiltration. The bile ducts are within normal limits. There is hepatic color flow. The direction of portal flow is hepatopetal. There is no demonstrated mass lesion. Portal vein measurement: Gallbladder: Normal distended gallbladder. The gallbladder wall measures 2.3 mm. There is a negative sonographic Brownlee''s sign. There is no pericholecystic fluid. There are no gallstones. Common Bile Duct (C.B.D.): The common bile duct measures 3.6 mm. Pancreas: Normal size of the head, body and tail of the pancreas. There is normal echogenicity of the pancreas. There is no demonstrated pancreatic mass or cyst. Spleen: Normal size of the spleen. The spleen measures 10.3 cm. Right Kidney: Normal size of the right kidney. The right kidney measures 11.3 x 4.9 x 4 point cm. Normal renal cortex. . There is no demonstrated renal mass or cyst. There is no right hydronephrosis. Left Kidney: Normal size of the left kidney. The left kidney measures 10.6 x 5.1 x 5.0 cm. Normal renal cortex. The left cortex measures 1.8 cm. There is no demonstrated renal mass or cyst. There is no left hydronephrosis. Aorta: Tapers normally I.V.C.: The IVC is patent. There is no ascites. US/Abdomen Complete IMPRESSION: Mild fatty infiltration of the liver, no discrete lesion Electronically Signed: Jacoby Macias MD at 9:49 EDT ,
== END | disposition home or self-care (01) ==
LOC: US 07:29
PROVIDERS: PCP Family Medicine; Referring Provider Nurse Practitioner Family; Visit Provider Nurse Practitioner Family
DX: R10.32 Left lower quadrant pain (principal); R10.11 Right upper quadrant pain; R10.12 Left upper quadrant pain
CPT/HCPCS: 76700

== ENCOUNTER → 2023-12-14 | Outpatient (CLI) | payer OTHER, SELFPAY ==
--- NOTE | 2023-12-14 09:50 | NM_ITS ---
CLINICAL: 38-year-old female with reported history of abdominal pain. RADIONUCLIDE HEPATOBILIARY SCINTIGRAPHY COMPARISON: Abdominal ultrasound report 11/15/2023 FINDINGS: Following the intravenous administration of 5.5 mCi of 99m Tc Mebrofenin, hepatobiliary images reveal: 1. Relatively prompt and homogeneous radiopharmaceutical concentration is noted by a normal sized liver. No parenchymal defects are identified. 2. Gallbladder activity is identified at approximately 12 minutes post radiopharmaceutical administration. 3. Small intestinal tract is observed at 15 minutes following tracer injection. 4. Washout of the radiopharmaceutical by the hepatic parenchyma appears qualitatively normal. 5. There is demonstrated duodenal-gastric reflux. NM/Hepatobilliary Imaging IMPRESSION: 1. Visualization of the gallbladder within 60 minutes post radiopharmaceutical administration excludes acute cholecystitis with 97% certitude. (Senait et al, Nucl Med [employer] pg. 35, 1980). 2. There is scintigraphic evidence of duodenal-gastric reflux as articulated above. Electronically Signed: Levi Guerrero DO at 9:10 EDT ,
== END | disposition home or self-care (01) ==
LOC: NM 09:46
PROVIDERS: PCP Family Medicine; Referring Provider Nurse Practitioner Family; Visit Provider Nurse Practitioner Family
DX: R10.9 Unspecified abdominal pain (principal)
CPT/HCPCS: 78226; A9537